=== PATIENT | male | born 1960 | race Caucasian/White ===

== ENCOUNTER → 2016-10-02 | Outpatient (CLI) | payer BC ==
[~2016-10-02] MED LIST: IOPAMIDOL (ISOVUE-370) 150 ML BTL IV ONE
== END ==
LOC: FIMAGING 13:56
PROVIDERS: ATTEND Psychiatry & Neurology Neurology
DX: R42 Dizziness and giddiness (principal); R91.1 Solitary pulmonary nodule; I65.02 Occlusion and stenosis of left vertebral artery; I87.8 Other specified disorders of veins
CPT/HCPCS: Q9967

== ENCOUNTER 2016-10-12 10:55 | Day surgery (SDC) | payer BC ==
[2016-10-12] MEDS ORDERED: MIDAZOLAM 2 MG/2 ML VIAL ONE ×2 (12:12→14:10)
[2016-10-12] MEDS ORDERED: fentaNYL 100 MCG/2 ML INJ ONE ×2 (12:12→14:10)
== END 2016-10-12 16:20 | disposition home or self-care (01) ==
LOC: FCATH 10:55
PROVIDERS: ATTEND Internal Medicine Cardiovascular Disease
PROC: B245ZZ4 Ultrasonography of Left Heart, Transesophageal (ICD-10-PCS; principal; 2016-10-12)
DX: R01.1 Cardiac murmur, unspecified (principal); I35.8 Other nonrheumatic aortic valve disorders; Z95.2 Presence of prosthetic heart valve; Z95.810 Presence of automatic (implantable) cardiac defibrillator
CPT/HCPCS: J2250; J3010

== ENCOUNTER 2016-11-08 10:29 | Inpatient (IN) | payer BC ==
[2016-11-08] MEDS ORDERED: FAMOTIDINE 20 MG TAB PO ONE (10:54)
[2016-11-08] MEDS ORDERED: DIAZEPAM 5 MG TAB PO ONE (10:54)
[2016-11-08] MEDS ORDERED: ASPIRIN EC 325 MG TAB PO ONE ×2 (10:54→11:21)
[2016-11-08] MEDS ORDERED: diphenhydrAMINE 25 MG CAP PO ONE ×2 (10:54→11:21)
[2016-11-08] MEDS ORDERED: NS 1,000 ML IV ONE (10:54)
--- NOTE | 2016-11-08 11:04 | CPEKG ---
Heart Rate: 82 RR Interval: 732 P-R Interval: 192 QRSD Interval: 106 QT Interval: 388 QTC Interval: 453 P [place]: 52 QRS [place]: -49 T Wave [place]: -88 EKG Severity - ABNORMAL ECG - EKG Impression: SINUS RHYTHM EKG Impression: LEFT ANTERIOR FASCICULAR BLOCK EKG Impression: LVH WITH SECONDARY REPOLARIZATION ABNORMALITY EKG Impression: ST/T WAVE CHANGES ARE MORE PRONOUNCED ON THIS ECG IN COMPARISON TO PRIOR Electronically Signed By: Jasper Peacock 08-Nov-2016 12:49:20
[2016-11-08] MEDS ORDERED: FAMOTIDINE 20 MG TAB ONE (11:21)
[2016-11-08] MEDS ORDERED: DIAZEPAM 5 MG TAB ONE (11:21)
[2016-11-08] MEDS ORDERED: LIDOCAINE 1% 30 ML SDV ONE (11:38)
[2016-11-08] MEDS ORDERED: MIDAZOLAM 2 MG/2 ML VIAL ONE ×2 (11:39→13:31)
[2016-11-08] MEDS ORDERED: HEPARIN 10,000 UNIT/10 ML MDV ONE (11:39)
[2016-11-08] MEDS ORDERED: fentaNYL 100 MCG/2 ML INJ ONE (11:39)
[2016-11-08] MEDS ORDERED: VERAPAMIL 5 MG/2 ML VIAL ONE (11:39)
[2016-11-08] MEDS ORDERED: IOPAMIDOL (ISOVUE 370) 100 ML BTL IV ONE ×2 (11:40→13:48)
[2016-11-08 11:45] LABS: % IMMATURE GRANULYOCYTES 0.4 % (0.0-1.1); ABSOLUTE IMMATURE GRANULOCYTES 0.02 10^3/uL (0.00-0.10); ADD DIFF? NO; ADD MORPH? NO; ADD SCAN? NO; ATYPICAL LYMPHOCYTE FLAG 20 (0-99); FRAGMENT RBC FLAG 0 (0-99); HEMATOCRIT 38.6 % (40.0-51.0); HEMOGLOBIN 13.9 g/dL (13.7-17.5); LEFT SHIFT FLG 0 (0-99); LIPEMIA HEMOLYSIS FLAG 90 (0-99); MEAN CELL HEMOGLOBIN 33.5 pg (27.9-34.1); MEAN PLATELET VOLUME 11.2 fL (8.7-11.7); PLATELET CLUMPS FLAG 10 (0-99); PLATELET COUNT 150 10^3/uL (150-400); RED BLOOD CELL COUNT 4.15 10^6/uL (4.40-6.38); RED CELL DISTRIBUTION WIDTH 11.8 % (11.5-15.2)
[2016-11-08 11:56] LABS: INR 1.16 (0.83-1.16); PROTIME(PATIENT) 14.8 SEC (12.0-15.0)
[2016-11-08 12:02] LABS: ANION GAP 14 mEq/L (8-16); CARBON DIOXIDE 19 mEq/l (22-31); CHLORIDE 102 mEq/L (97-110); POTASSIUM 4.5 mEq/L (3.5-5.2); SODIUM 135 mEq/L (134-144)
[2016-11-08 12:03] LABS: CALCIUM 9.2 mg/dL (8.5-10.4); CHOLESTEROL 140 mg/dL (140-220); CHOLESTEROL/HDL RATIO 6.09 RATIO (1.00-4.97); GLOMERULAR FILTRATION RATE > 60; GLUCOSE 206 mg/dL (70-100); HIGH DENSITY LIPOPROTEIN 23 mg/dL (40-65); LDL/HDL RATIO 1.78 RATIO (1.00-3.64); LOW DENSITY LIPOPROTEIN 41 mg/dL (80-100); MAGNESIUM 1.6 mg/dL (1.6-2.3); NON-HIGH DENSITY LIPOPROTEIN 117 mg/dL (90-129); TRIGLYCERIDE 382 mg/dL (40-150); VERY LOW DENSITY LIPOPROTEINS 76 mg/dL (8-25)
[2016-11-08] MEDS ORDERED: traMADol 50 MG TAB PO PRN (12:23)
[2016-11-08] MEDS ORDERED: CYCLOBENZAPRINE 10 MG TAB PO PRN (12:23)
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
[2016-11-08 13:43] LABS: HEMOGLOBIN A1C 9.7 % (4.0-6.0)
--- NOTE | 2016-11-08 14:41 | CPIP ---
[f rep st] INVASIVE CARDIAC PROCEDURE DATE OF PROCEDURE: 11/08/2016 PROCEDURE: 1. Coronary angiography. 2. Bypass graft angiography. INDICATION: Preoperative evaluation prior to surgical AVR. ACCESS: Patient was prepped and draped in sterile fashion. 1% lidocaine was used to anesthetize th e right inguinal region. A 6-[place]ong[place] introducer sheath was placed selectively into the right common femoral artery via modified Seldinger technique. CORONARY ANGIOGRAPHY: A 6-[place]ong[place] JL4 was advanced to the left main coronary artery and images ob[place]i [place]. The left main coronary artery bifurcated into an LAD and circumflex coronary arteries. The le ft main coronary artery appeared normal. The left anterior descending coronary artery gave rise to 1 prominent diagonal branch. The left anterior descending coronary artery had a segmental 70% to 80 % stenosis in the midvessel. The distal vessel was being filled by patent JACKMAN to LAD graft. The fi rst diagonal artery was a large vessel. The 1st diagonal artery was free of any significant disease. The first diagonal artery was being fed by a saphenous vein graft to diagonal artery. The circumf denise coronary artery was a moderate to large size vessel. The circumflex coronary artery gave rise t o 3 OM branches. Circumflex coronary artery was nondominant. Circumflex coronary artery appeared no rmal. A 6-[place]ong[place] JR4 was advanced to the right coronary artery and images obtained. The right reyna nary artery was dominant. The right coronary artery had mild luminal regularities throughout. Ther e was no stenosis greater than 15% to 20%. BYPASS GRAFT ANGIOGRAPHY: A 6-[place]ong[place] JR4 was used to engage the saphenous vein graft to diagonal ar [place]. saphenous vein graft to diagonal artery was widely patent with no evidence of stenosis. The 6- [place] JR4 was used to engage the JACKMAN to LAD graft. The JACKMAN to LAD graft was widely patent with n o evidence of stenosis. LEFT VENTRICULOGRAPHY: Left ventriculography was not performed given presence of severe aortic sten osis. COMPLICATIONS: None. CONCLUSIONS: 1. Single-vessel coronary artery disease. 2. Patent saphenous vein graft to diagonal artery. 3. Patent JACKMAN to LAD graft. /[id number]/MODL
[2016-11-08] MEDS: CARVEDILOL 25 MG TAB PO SCH (18:28)
[2016-11-08] MEDS ORDERED: CHLORHEXIDINE GLUC HIBICLENS 118 ML BTL TP SCH (20:00)
[2016-11-08] MEDS: HEPARIN 5,000 UNIT/0.5 ML SYR SC SCH ×2 (21:15→21:31)
[2016-11-08] MEDS: FLUoxetine 20 MG CAP PO SCH (21:22)
[2016-11-08] MEDS: MESALAMINE 400 MG CAP.DR PO SCH (21:29)
[2016-11-08] MEDS: MUPIROCIN 2% 22 GM OINT NS SCH (21:29)
[2016-11-08] MEDS: ZOLPIDEM TARTRATE 5 MG TAB PO SCH (23:00)
[2016-11-09 04:48] LABS: HEMATOCRIT 36.6 % (40.0-51.0); MEAN CELL HEMOGLOBIN 33.8 pg (27.9-34.1); MEAN CELL HEMOGLOBIN CONCENTR. 35.5 g/dL (32.4-36.7); MEAN CELL VOLUME 95.1 fL (81.5-99.8); RED BLOOD CELL COUNT 3.85 10^6/uL (4.40-6.38); RED CELL DISTRIBUTION WIDTH 11.8 % (11.5-15.2)
[2016-11-09 05:02] LABS: ANION GAP 10 mEq/L (8-16); CALCIUM 8.5 mg/dL (8.5-10.4); CARBON DIOXIDE 20 mEq/l (22-31); CHLORIDE 107 mEq/L (97-110); CREATININE 0.8 mg/dL (0.7-1.3); GLOMERULAR FILTRATION RATE > 60; GLUCOSE 111 mg/dL (70-100); POTASSIUM 4.1 mEq/L (3.5-5.2); SODIUM 137 mEq/L (134-144)
[2016-11-09] MEDS ORDERED: NS 1,000 ML IV ONE (06:00)
[2016-11-09] MEDS ORDERED: INSULIN REGULAR HUMAN 100 UNIT in NS 100 ML IV ONE (06:00)
[2016-11-09] MEDS ORDERED: CITRATE DEXTROSE SOLN 500 ML BAG MISC ONE (06:00)
[2016-11-09] MEDS ORDERED: AMINOCAPROIC ACID 5 GM/20 ML VIAL IV ONE (06:00)
[2016-11-09] MEDS ORDERED: DOBUTamine/DEXTROSE 250 ML IV ONE (06:00)
[2016-11-09] MEDS ORDERED: SODIUM BICARBONATE 20 MEQ, LIDOCAINE 1% 10 ML in NORMOSOL-R 1,000 ML MISC ONE (06:00)
[2016-11-09] MEDS ORDERED: PHENYLEPHRINE HCL 50 MG in NS 250 ML IV ONE (06:00)
[2016-11-09] MEDS ORDERED: NOREPINEPHRINE BITARTRATE 16 MG in NS 250 ML IV ONE (06:00)
[2016-11-09] MEDS ORDERED: MILRINONE/DEXTROSE 100 ML IV ONE (06:00)
[2016-11-09] MEDS ORDERED: ceFAZolin 2 GM/DEXTROSE 100 ML IV ONE (06:00)
[2016-11-09] MEDS ORDERED: MANNITOL 25% 12.5 GM/50 ML VIAL IV ONE (06:00)
[2016-11-09] MEDS ORDERED: CALCIUM CHLORIDE 1 GM/10 ML INJ ONE ×2 (06:49→08:25)
[2016-11-09] MEDS ORDERED: MILRINONE/DEXTROSE/100 ML BAG IV ONE (06:49)
[2016-11-09] MEDS ORDERED: AMINOCAPROIC ACID 5 GM/20 ML VIAL ONE (06:49)
[2016-11-09] MEDS ORDERED: ALBUMIN 5% 250 ML BOTTLE IV ONE (06:49)
[2016-11-09] MEDS ORDERED: POTASSIUM Cl (KCl) 20 MEQ/50 ML BAG IV ONE (06:49)
[2016-11-09] MEDS ORDERED: PROTAMINE SULFATE 50 MG/5 ML VIAL IVP ONE (06:49)
[2016-11-09] MEDS ORDERED: LIDOCAINE 2% 100 MG/5 ML SYR ONE ×2 (06:49→08:25)
[2016-11-09] MEDS ORDERED: NA BICARBONATE 50 MEQ/50 ML VIAL ONE ×2 (06:49→16:01)
[2016-11-09] MEDS ORDERED: ADENOSINE 6 MG/2 ML VIAL ONE (06:50)
[2016-11-09] MEDS ORDERED: CITRATE DEXTROSE SOLN 500 ML BAG ONE (06:50)
[2016-11-09] MEDS ORDERED: MAGNESIUM SULFATE 1 GM/2 ML VIAL ONE (06:50)
[2016-11-09] MEDS ORDERED: niCARdipine/NACL/200 ML BAG IV ONE (06:50)
[2016-11-09] MEDS ORDERED: DOPamine/DEXTROSE/250 ML BAG IV ONE (06:50)
[2016-11-09] MEDS ORDERED: AMIODARONE HCL 150 MG/3 ML VIAL ONE (06:50)
[2016-11-09] MEDS ORDERED: methylPREDNISolone SOD SUCC 1 GM/8 ML VIAL ONE (06:50)
[2016-11-09] MEDS ORDERED: ceFAZolin 1 GM VIAL ONE (06:51)
[2016-11-09] MEDS ORDERED: HEPARIN 10,000 UNIT/10 ML MDV ONE (06:51)
[2016-11-09] MEDS ORDERED: LIDOCAINE 1% 5 ML SDV ONE (06:58)
[2016-11-09] MEDS ORDERED: LR 1,000 ML IV ONE (08:03)
[2016-11-09] MEDS ORDERED: MIDAZOLAM 2 MG/2 ML VIAL ONE ×4 (08:07→08:22)
[2016-11-09] MEDS ORDERED: PROPOFOL/EMULSION 500 MG/50 ML BOTTLE IV ONE ×2 (08:23→10:21)
[2016-11-09] MEDS ORDERED: fentaNYL 250 MCG/5 ML INJ ONE (08:23)
[2016-11-09] MEDS ORDERED: REMIFENTANIL HCL 1 MG VIAL ONE ×2 (08:23→10:21)
[2016-11-09] MEDS ORDERED: ROCURONIUM 50 MG/5 ML VIAL ONE ×3 (08:23→08:24)
[2016-11-09] MEDS ORDERED: ONDANSETRON 4 MG/2 ML VIAL ONE (08:24)
[2016-11-09] MEDS ORDERED: epHEDrine SULFATE 10 MG/ML SYR ONE (08:24)
[2016-11-09] MEDS ORDERED: DEXAMETHASONE 4 MG/ML VIAL ONE ×2 (08:24)
[2016-11-09] MEDS ORDERED: PHENYLEPHRINE HCL 100 MCG/ML SYR ONE (08:25)
[2016-11-09] MEDS ORDERED: LIDOCAINE HCL 160 MG/4 ML LTA KIT TP ONE (08:25)
[2016-11-09] MEDS ORDERED: morphINE *ANESTHESIA ONLY* 10 MG/ML VIAL ONE (12:17)
[2016-11-09] MEDS ORDERED: ALBUMIN 5% 250 ML IV PRN (12:35)
[2016-11-09] MEDS ORDERED: fentaNYL 100 MCG/2 ML INJ IVP PRN (12:35)
[2016-11-09] MEDS ORDERED: POTASSIUM Cl (KCl) 50 ML IV PRN (12:35)
[2016-11-09] MEDS ORDERED: ACETAMINOPHEN 650 MG SUPP PR PRN (12:35)
[2016-11-09] MEDS ORDERED: ONDANSETRON DISINTEGRATING 4 MG TAB PO PRN (12:35)
[2016-11-09] MEDS ORDERED: CEPACOL LOZENGE PO PRN (12:35)
[2016-11-09] MEDS ORDERED: METOCLOPRAMIDE 10 MG/2 ML VIAL IVP PRN (12:35)
[2016-11-09] MEDS ORDERED: SODIUM CL NASAL 45 ML BTL EACHNARE PRN (12:35)
[2016-11-09] MEDS ORDERED: POLYETHYLENE GLYCOL 3350 17 GM PKT PO PRN (12:35)
[2016-11-09] MEDS ORDERED: MAGNESIUM SULF 2 GM/WATER 50 ML IV ONE (12:35)
[2016-11-09] MEDS ORDERED: D50W 25 GM/50 ML SYR IVP PRN (12:35)
[2016-11-09] MEDS ORDERED: MEPERIDINE 25 MG/ML SYR IVP PRN (12:35)
[2016-11-09] MEDS ORDERED: PANTOPRAZOLE SODIUM 40 MG in NS 100 ML IV ONE (12:35)
[2016-11-09] MEDS ORDERED: MAGNESIUM HYDROXIDE 30 ML UDCUP PO PRN (12:35)
[2016-11-09] MEDS ORDERED: LACTULOSE 20 GM/30 ML UDCUP PO PRN (12:35)
[2016-11-09] MEDS ORDERED: BISACODYL 10 MG SUPP PR PRN (12:35)
[2016-11-09] MEDS ORDERED: ACETAMINOPHEN 325 MG TAB PO PRN (12:35)
[2016-11-09] MEDS ORDERED: NS 1,000 ML IV SCH (12:45)
[2016-11-09] MEDS ORDERED: MAGNESIUM SULF 2 GM/WATER 50 ML BAG IV ONE (12:53)
[2016-11-09] MEDS ORDERED: INSULIN REGULAR HUMAN 100 UNIT in NS 100 ML IV SCH (13:00)
[2016-11-09] MEDS ORDERED: SKIN ADHESIVE (DERMABOND) 1 EACH TP ONE ×2 (13:00→13:16)
[2016-11-09 14:02] LABS: CALCULATED OXYGEN SATURATION 98 % (92-95)
--- NOTE | 2016-11-09 14:09 | POSTOPPROG ---
Post Op Note Date of Operation: 11/09/16 Surgeon: Ernesto Abdi Lift Slab Operator: Lore Joseph Anesthesiologist: Mitch Anesthesia: GET(General Endotracheal) Pre-op Diagnosis: prosthetic aortic valve stenosis Procedure: reoperation AVR Inf/Abcess present in the surg proc area at time of surgery?: No EBL: 100-500 Drains: Other (3 blakes)
[2016-11-09 14:27] LABS: POTASSIUM 5.7 mEq/L (3.5-5.2)
[2016-11-09] MEDS: ceFAZolin 2 GM/DEXTROSE 100 ML IV SCH ×2 (14:35→21:14)
--- NOTE | 2016-11-09 14:45 | CPEKG ---
Heart Rate: 76 RR Interval: 789 P-R Interval: 208 QRSD Interval: 112 QT Interval: 416 QTC Interval: 468 P [place]: 63 QRS [place]: -53 T Wave [place]: 261 EKG Severity - ABNORMAL ECG - EKG Impression: SINUS RHYTHM EKG Impression: LEFT ANTERIOR FASCICULAR BLOCK EKG Impression: LVH CONTINUES TO BE NOTED Electronically Signed By: Jasper Peacock 09-Nov-2016 16:17:48
[2016-11-09] MEDS: niCARdipine/NACL 200 ML IV SCH (14:52)
--- NOTE | 2016-11-09 14:55 | GOP ---
[f rep st] OPERATIVE REPORT DATE OF OPERATION: 11/09/2016 SURGEON: Ernesto Abdi DO DIE REPAIRER TRIMMER DIES: Raisa Joseph PA-C. ANESTHESIOLOGIST: Maurice Meyer MD. PREOPERATIVE DIAGNOSIS: Prosthetic valve stenosis, status post previous aortic valve replacement wi th a porcine valve. POSTOPERATIVE DIAGNOSIS: Minimal evidence of prosthetic failure, leaflets appeared pristine with mi nimal thrombus along the right coronary leaflet. PROCEDURE PERFORMED: Reoperation and aortic valve replacement with a #25 Magna bioprosthesis. FINDINGS: Patient was found to have early valve degeneration 1 year post procedure with aortic valv e replacement and mitral repair, CABG, ligation of the appendage and aortoplasty. He was consented and referred for repeat surgery, catheterization preoperative bilirubin revealed patent grafts and g ood LV function. He was brought to the operating room, intubated, monitoring lines were placed by A nesthesia. He was prepped and draped in sterile classical manner. Repeat median sternotomy was per formed with an oscillating saw. Marsupialization of the ascending aorta and right side of the heart was performed for limited exposure. There was inadvertent injury to the main pulmonary artery whic h was primarily repaired and of no consequence. He was heparinized, cannulated in the standard [facility] ion. Cardiopulmonary bypass was begun. A cardioplegic arrest was obtained with antegrade cardiople ofelia, retrograde cardioplegia, topical hypothermia and systemic cooling. Aortotomy was performed in standard fashion. The valve was inspected. There was a 25 mm mosaic porcine valve which essentiall y appeared without any valve degeneration or thickening. There was a small amount of pannus along t he valve annular commissure but not likely enough to cause outflow obstruction. Because the valve d id not appear to have early failure, the patient and I discussed mechanical versus tissue valve. We were prepared to replace the mechanical, although patient did not want to be on Coumadin life long. I advised him that if the valve in fact did not show heavy pannus or degenerative changes that we could consider using a bovine valve or a mechanical valve. Given the fact that the valve had no sig nificant pannus identified, I elected to place a bovine valve for his quality of life and [facility]. The previous valve was excised. The anulus was debrided. All pledgets and foreign bodies we re removed from the anulus. He was sized for a 25 Magna valve. This was sutured in place with inte rrupted 2-0 Tycron pledgeted mattress sutures utilizing core knots. Aortotomy was closed in a 2-lay er fashion. LV chamber had been copiously irrigated. It should be noted that the previous mammary had a bulldog applied before cardioplegia was administered. The cross-clamp was removed with suctio n on the ascending aortic vent. Spontaneous cardiac activity was noted to resume. Patient was easi ly weaned from bypass. Heparin was reversed with protamine. The cannula was removed and oversewn. Transesophageal echo revealed good valvular function without insufficiency with a peak gradient of 15 and a mean gradient of 7 which would be consistent with a 25 Magna valve. After controlling all bleeding, attempts were made to close the thymus and pericardium as much as possible predominantly o pablo the upper portion of the aorta and proximal pulmonary artery. The sternum was closed in standar d fashion with 2 ventricular pacing wires, although he had indwelling defibrillator pacemaker. Ster num was closed in a standard fashion. Patient was returned to ICU in stable condition. DESCRIPTION OF PROCEDURE: /[id number]/MODL
[2016-11-09] MEDS ORDERED: FUROSEMIDE 20 MG/2 ML VIAL IV ONE (15:30)
[2016-11-09] MEDS: CARVEDILOL 25 MG TAB PO SCH (15:36)
[2016-11-09] MEDS: MESALAMINE 400 MG CAP.DR PO SCH (15:37)
[2016-11-09] MEDS ORDERED: NALOXONE HCL 0.4 MG/ML INJ ONE (16:01)
[2016-11-09] MEDS ORDERED: NA BICARBONATE 50 MEQ/50 ML VIAL IV ONE (16:30)
[2016-11-09] MEDS ORDERED: NALOXONE HCL 0.4 MG/ML INJ IVP ONE (16:30)
[2016-11-09] MEDS ORDERED: KETOROLAC 30 MG/1 ML SDV IVP ONE (16:30)
[2016-11-09 19:16] LABS: BASE EXCESS -3.5 mEq/L (-2.5-2.5); BICARBONATE 22 mEq/L (22-26); MEASURED OXYGEN SATURATION 97 % (92-95); PCO2 42 mmHg (34-38); PO2 98 mmHg (65-75); TCO2 23 mEq/L (23-27)
[2016-11-09] MEDS: ONDANSETRON 4 MG/2 ML VIAL IVP PRN (19:32)
[2016-11-09] MEDS: HEPARIN 5,000 UNIT/0.5 ML SYR SC SCH (19:39)
[2016-11-09] MEDS: MUPIROCIN 2% 22 GM OINT NS SCH ×2 (19:39→21:13)
[2016-11-09 19:54] LABS: CALCULATED OXYGEN SATURATION 91 % (92-95)
[2016-11-09 19:54] LABS: CALCULATED OXYGEN SATURATION 93 % (92-95)
[2016-11-09] MEDS: HYDROCODONE/APAP 5/325 TAB PO PRN ×2 (19:56→23:50)
[2016-11-09] MEDS: SENNOSIDES/DOCUSATE SODIUM TAB PO SCH (21:13)
[2016-11-09] MEDS: FLUoxetine 20 MG CAP PO SCH (21:14)
[2016-11-09] MEDS ORDERED: AMIODARONE A.FIB-LOAD DOSE(ORDER 1/3) IV ONE (23:30)
[2016-11-09] MEDS ORDERED: AMIODARONE A.FIB-6HR INFSN (ORDER 2/3) IV ONE (23:30)
[2016-11-09] MEDS ORDERED: AMIODARONE A.FIB-18HR INFSN (ORDER 3/3) IV ONE (23:30)
[2016-11-10] MEDS: niCARdipine/NACL 200 ML IV SCH ×2 (01:00→08:50)
[2016-11-10] MEDS: ceFAZolin 2 GM/DEXTROSE 100 ML IV SCH ×3 (05:06→20:13)
[2016-11-10] MEDS: HYDROCODONE/APAP 5/325 TAB PO PRN ×4 (05:06→20:10)
[2016-11-10 05:10] LABS: % IMMATURE GRANULYOCYTES 0.6 % (0.0-1.1); ABSOLUTE IMMATURE GRANULOCYTES 0.07 10^3/uL (0.00-0.10); ADD DIFF? NO; ADD MORPH? NO; ADD SCAN? NO; ATYPICAL LYMPHOCYTE FLAG 0 (0-99); FRAGMENT RBC FLAG 0 (0-99); HEMATOCRIT 25.8 % (40.0-51.0); HEMOGLOBIN 9.1 g/dL (13.7-17.5); LEFT SHIFT FLG 10 (0-99); LIPEMIA HEMOLYSIS FLAG 90 (0-99); MEAN CELL HEMOGLOBIN 33.8 pg (27.9-34.1); MEAN CELL HEMOGLOBIN CONCENTR. 35.3 g/dL (32.4-36.7); MEAN CELL VOLUME 95.9 fL (81.5-99.8); PLATELET CLUMPS FLAG 0 (0-99); PLATELET COUNT 94 10^3/uL (150-400); RED BLOOD CELL COUNT 2.69 10^6/uL (4.40-6.38); RED CELL DISTRIBUTION WIDTH 12.2 % (11.5-15.2)
[2016-11-10] MEDS: HEPARIN 5,000 UNIT/0.5 ML SYR SC SCH ×4 (05:15→20:35)
[2016-11-10 05:29] LABS: ANION GAP 8 mEq/L (8-16); CALCIUM 7.7 mg/dL (8.5-10.4); CARBON DIOXIDE 21 mEq/l (22-31); CHLORIDE 109 mEq/L (97-110); CREATININE 0.7 mg/dL (0.7-1.3); GLOMERULAR FILTRATION RATE > 60; GLUCOSE 143 mg/dL (70-100); POTASSIUM 4.8 mEq/L (3.5-5.2); SODIUM 138 mEq/L (134-144)
[2016-11-10] MEDS ORDERED: AMIODARONE HCL 200 ML IV SCH (05:30)
--- NOTE | 2016-11-10 08:16 | SOAPPROG ---
SOAP Progress Note Assessment/Plan: Assessment: POD#1 redo AVR #25 Magna bovine pericardial bioprosthesis, preservation JACKMAN-LAD and SV-D1 grafts Sx severe bioprosthetic - Degenerated porcine valve replaced with bovine valve. Procedure well tolerated. Extubated in the OR. Antithrombotic prophylaxis with ASA alone, pending stability of rhythm. Chronic dCHF - No sig postop volume overload. No need for inotropic support. PVC freq controlled with Amio. Reintroduction of heart failure regimen in staggered fashion as tolerate. Presence of dual chamber ICD - Hx freq PVCs, short runs NSVT, rare pacing. Postop ventricular ectopy suppressed with Amio. HTN - Preop control with coreg, lisinopril and lasix. Postop control with low dose cardene gtt. Wean in progress. Plan switch coreg to metoprolol as LVEF normal. Acute expected blood loss anemia with mild coagulopathy - Stable. CTOP gradually less. No blood transfusions required. Care with VTE prophylaxis while plt count < 100. New diabetes - Suspected by preop A1c of 9.7%. Postop hyperglycemia managed with insulin gtt. Transition to basal/SSI as per ICU. Low threshold to obtain IM consult if correctional needs elevated. CAD - Patent grafts. No apparent periop ischemia. Secondary prevention with ASA , BB and statin when eating well. Plan: Routine POD#1 orders re wires, orals and mobility. Keep CTs to pleurovac, on suction at rest. Begin active diuresis. Transition cardene to oral BB +/- ACEI. D/C jacinta once off cardene. Transition IV amio to oral tonight. Transition insulin gtt to SSI. PPM interrogation/ICD reactivation per medtronic rep. Tx to PCU later today. 11/10/16 08:13 Subjective: Feels better than expected. Thrilled that mechanical valve avoided. Tolerating sips and chips. OOB without dizziness or lightheadedness. Objective: Vital Signs Temp Pulse Resp BP Pulse Ox 37.1 C 81 20 142/64 H 94 11/10/16 04:00 11/10/16 07:00 11/10/16 07:00 11/10/16 07:00 11/10/16 07:00 Laboratory Results 11/10/16 05:05 11/10/16 05:05 11/09/16 11/10/1617 05:59 05:59 05:59 Intake Total 400 3900.1 Output Total 450 3385 Balance -50 515.1 PT 14.8 SEC (12.0-15.0) 11/08/16 11:28 INR 1.16 (0.83-1.16) 11/08/16 11:28 Cardene at 5 mg/h for SBP > 130. Amio per protocol for freq PVCs with occ 3-4 beat runs of VT. Rare PVCs since load completed. Insulin at 4u/h. CTOP initially elev, now dissipating. +AL w valsalva. CXR-> Tubes in good position. Mild pulm vasc congestion and bibasilar atelectasis. Small rt apical PTX. Modest suppl O2 req. Relatively balanced I/Os. Stable renal fx. Physical Exam - Physical Exam General Appearance: alert, no apparent distress Respiratory: crackles (tube noise), other (blakes x 3 y-d to pleurovac, thin serosang drainage, +tidal, +AL w valsalva) Cardiac/Chest: regular rate, rhythm, other (Sternum grossly stable. Sternotomy CDI. V wire intact. Zoll pads in place.) Abdomen: normal bowel sounds, non-tender, soft Skin: normal color Extremities: swelling (1+ gen) ICD10 Worksheet Patient Problems: Problems Problem Status Onset Acute blood loss anemia Acute Prosthetic aortic valve stenosis Acute S/P aortic valve replacement with bioprosthetic valve Acute ~11/09/16 CAD in [place] artery Chronic Congestive heart failure (CHF) Chronic ICD (implantable cardioverter-defibrillator), dual, in situ Chronic Nonsustained ventricular tachycardia Chronic Dyslipidemia (high LDL; low HDL) Chronic HTN (hypertension) Chronic
[2016-11-10] MEDS ORDERED: FUROSEMIDE 40 MG/4 ML VIAL IVP ONE (08:35)
[2016-11-10] MEDS: ASPIRIN 81 MG CHEWABLE TAB PO SCH (08:51)
[2016-11-10] MEDS: PANTOPRAZOLE SODIUM 40 MG TAB PO SCH (08:51)
[2016-11-10] MEDS: MEMANTINE HCL 5 MG TAB PO SCH (08:51)
[2016-11-10] MEDS: SENNOSIDES/DOCUSATE SODIUM TAB PO SCH (08:52)
[2016-11-10] MEDS ORDERED: METOPROLOL TARTRATE 25 MG TAB PO ONE (09:00)
[2016-11-10] MEDS: MUPIROCIN 2% 22 GM OINT NS SCH ×2 (09:01→22:21)
[2016-11-10] MEDS: MESALAMINE 400 MG CAP.DR PO SCH ×2 (09:16→19:44)
[2016-11-10] MEDS ORDERED: INSULIN GLARGINE 100 UNITS/ML SYRINGE SC ONE (10:30)
[2016-11-10] MEDS: ONDANSETRON 4 MG/2 ML VIAL IVP PRN (10:48)
[2016-11-10] MEDS: INSULIN LISPRO 100 UNIT/ML SC SCH ×2 (12:18→18:17)
[2016-11-10] MEDS ORDERED: LISINOPRIL 5 MG TAB PO SCH (12:30)
[2016-11-10 13:20] LABS: POTASSIUM 4.9 mEq/L (3.5-5.2)
[2016-11-10] MEDS: FUROSEMIDE 40 MG TAB PO SCH (14:22)
[2016-11-10] MEDS ORDERED: POTASSIUM CL 10 MEQ TAB PO ONE (15:00)
[2016-11-10] MEDS: METOPROLOL TARTRATE 25 MG TAB PO SCH (19:44)
[2016-11-10] MEDS: FLUoxetine 20 MG CAP PO SCH (19:44)
[2016-11-10] MEDS: AMIODARONE HCL 200 MG TAB PO SCH (19:45)
[2016-11-10] MEDS: ZOLPIDEM TARTRATE 5 MG TAB PO SCH ×2 (20:11→22:20)
[2016-11-10] MEDS ORDERED: CARVEDILOL 6.25 MG TAB PO SCH (21:00)
[2016-11-10] MEDS ORDERED: SENNOSIDES/DOCUSATE SODIUM TAB PO PRN (21:00)
[2016-11-11] MEDS: HYDROCODONE/APAP 5/325 TAB PO PRN ×3 (00:33→09:02)
[2016-11-11 04:40] LABS: % IMMATURE GRANULYOCYTES 0.8 % (0.0-1.1); ABSOLUTE IMMATURE GRANULOCYTES 0.11 10^3/uL (0.00-0.10); ABSOLUTE NRBC COUNT 0.04 10^3/uL (0-0.01); ADD DIFF? NO; ADD MORPH? NO; ADD SCAN? NO; ATYPICAL LYMPHOCYTE FLAG 0 (0-99); FRAGMENT RBC FLAG 0 (0-99); HEMATOCRIT 24.1 % (40.0-51.0); HEMOGLOBIN 8.4 g/dL (13.7-17.5); LEFT SHIFT FLG 10 (0-99); LIPEMIA HEMOLYSIS FLAG 90 (0-99); MEAN CELL HEMOGLOBIN 33.5 pg (27.9-34.1); MEAN CELL HEMOGLOBIN CONCENTR. 34.9 g/dL (32.4-36.7); MEAN PLATELET VOLUME 11.1 fL (8.7-11.7); NRBC-AUTO% 0.3 % (0.0-0.2); PLATELET CLUMPS FLAG 10 (0-99); PLATELET COUNT 114 10^3/uL (150-400); RED BLOOD CELL COUNT 2.51 10^6/uL (4.40-6.38); RED CELL DISTRIBUTION WIDTH 12.4 % (11.5-15.2)
[2016-11-11 04:57] LABS: ANION GAP 10 mEq/L (8-16); CALCIUM 7.5 mg/dL (8.5-10.4); CARBON DIOXIDE 23 mEq/l (22-31); CHLORIDE 100 mEq/L (97-110); CREATININE 0.7 mg/dL (0.7-1.3); GLOMERULAR FILTRATION RATE > 60; GLUCOSE 171 mg/dL (70-100); POTASSIUM 4.6 mEq/L (3.5-5.2); SODIUM 133 mEq/L (134-144)
[2016-11-11] MEDS: HEPARIN 5,000 UNIT/0.5 ML SYR SC SCH ×3 (06:44→20:55)
[2016-11-11] MEDS ORDERED: INSULIN GLARGINE 100 UNITS/ML SYRINGE SC ONE (08:00)
--- NOTE | 2016-11-11 08:44 | SOAPPROG ---
SOAP Progress Note Assessment/Plan: Assessment: POD#2 redo AVR #25 Magna bovine pericardial bioprosthesis, preservation JACKMAN-LAD and SV-D1 grafts Sx severe bioprosthetic - Degenerated porcine valve replaced with bovine valve. Procedure well tolerated. Extubated in the OR. Antithrombotic prophylaxis with ASA alone, pending stability of rhythm. Chronic dCHF - No sig postop volume overload. No need for inotropic support. PVC freq controlled with Amio. Reintroduction of heart failure regimen in staggered fashion as tolerated. Presence of dual chamber ICD - Hx freq PVCs, short runs NSVT, rare pacing. Postop device fx normal by interrogation. Ventricular ectopy suppressed with Amio. HTN - Preop control with coreg, lisinopril and lasix. Postop control with low dose cardene gtt. Wean in progress. Coreg switched to metoprolol as LVEF normal. Acute expected blood loss anemia with mild coagulopathy - Stable. CTOP gradually less. No blood transfusions required. Care with VTE prophylaxis while plt count < 100. New diabetes - Suspected by preop A1c of 9.7%. Postop hyperglycemia managed with insulin gtt. Transition to basal/SSI as per ICU. Low threshold to obtain IM consult if correctional needs elevated. CAD - Patent grafts. No apparent periop ischemia. Secondary prevention with ASA , BB and statin when eating well. Plan: Vwire removed. Blakes converted to bulb suction. Cont Lasix 40mg BID/KCL 20mEq daily. Cont metoprolol 25mg BID. Cont amio 200 mg BID. Consider lisinopril 5 mg daily if hypertensive. Cont glargine/SSI. IM consult for further management. Inc mobility and pulm toilet. 11/11/16 08:37 Subjective: Feels well. Recovering appetite. Tolerating light activity without dizziness. Satisfactory analgesia. Objective: Vital Signs Temp Pulse Resp BP Pulse Ox 36.2 C 78 20 109/62 98 11/11/16 07:36 11/11/16 07:36 11/11/16 07:36 11/11/16 07:36 11/11/16 07:36 Laboratory Results 11/11/16 04:30 11/11/16 04:30 11/10/16 11/11/16 11/12/16 05:59 05:59 05:59 Intake Total 3900.1 2070 Output Total 3385 1672 Balance 515.1 398 PT 14.8 SEC (12.0-15.0) 11/08/16 11:28 INR 1.16 (0.83-1.16) 11/08/16 11:28 Holding SR with freq unifocal PVCs. BP well controlled. Minimal suppl O2 req. Air leak resolved. Chest tube drainage thin and dissipating. Balanced I/Os. Labs ok. 26u correctional insulin. Physical Exam - Physical Exam General Appearance: alert, no apparent distress Respiratory: lungs clear (grossly), other (blakes x 3 y-d to pleurovac, serosang drainage, no AL w cough; tubes converted to bulb suction without incident) Cardiac/Chest: regular rate, rhythm, other (Sternum grossly stable. Sternotomy CDI. Vwire d/cd without difficulty) Abdomen: non-tender, soft Skin: warm/dry Extremities: swelling (1+ gen) ICD10 Worksheet Patient Problems: Problems Problem Status Onset Acute blood loss anemia Acute Prosthetic aortic valve stenosis Acute S/P aortic valve replacement with bioprosthetic valve Acute ~11/09/16 CAD in [place] artery Chronic Congestive heart failure (CHF) Chronic ICD (implantable cardioverter-defibrillator), dual, in situ Chronic Nonsustained ventricular tachycardia Chronic Dyslipidemia (high LDL; low HDL) Chronic HTN (hypertension) Chronic
[2016-11-11] MEDS: INSULIN LISPRO 100 UNIT/ML SC SCH ×3 (08:54→19:48)
[2016-11-11] MEDS: ASPIRIN 81 MG CHEWABLE TAB PO SCH (08:54)
[2016-11-11] MEDS: ATORVASTATIN CALCIUM 20 MG TAB PO SCH (08:54)
[2016-11-11] MEDS: POTASSIUM CL 20 MEQ TAB PO SCH (08:54)
[2016-11-11] MEDS: MEMANTINE HCL 5 MG TAB PO SCH (08:54)
[2016-11-11] MEDS: FUROSEMIDE 40 MG TAB PO SCH ×2 (08:54→14:04)
[2016-11-11] MEDS: AMIODARONE HCL 200 MG TAB PO SCH ×2 (08:54→20:52)
[2016-11-11] MEDS: PANTOPRAZOLE SODIUM 40 MG TAB PO SCH (10:16)
[2016-11-11] MEDS: MUPIROCIN 2% 22 GM OINT NS SCH (10:16)
[2016-11-11] MEDS: METOPROLOL TARTRATE 25 MG TAB PO SCH ×2 (10:16→20:52)
[2016-11-11] MEDS: MESALAMINE 400 MG CAP.DR PO SCH ×2 (10:16→20:52)
[2016-11-11 10:17] LABS: POTASSIUM 4.6 mEq/L (3.5-5.2)
--- NOTE | 2016-11-11 10:24 | PDCONSULT ---
Body Design Checker Note: date of service: 11/11/2016 Requesting physician: Dr. Ernesto Abdi Reason for consultation: Diabetes management History of presenting illness: 56 y/o male with history of coronary artery disease, CHF, hypertension, aortic valve stenosis post op day 2 after redo aortic valve replacement. Postoperatively he was found to have elevated blood sugars. Denies history of diabetes mellitus. While in the hospital as blood sugars have ranged from 111- 173. Hemoglobin A1c was done and was elevated at 9.7. Mr. Bryant does not recall when he was last screened for diabetes. He has had polydipsia and polyuria for some time. He denies weight loss. He does report some tingling in his feet. He was given 15 units of Glargine this morning and has been started on the high dose insulin correctional insulin. Prior to that, he was on a insulin drip to maintain tight glycemic control. Past medical history: CAD, CHF, HTN, hyperlipidemia, diverticulitis Past surgical history: coronary bypass surgery, colectomy (partial, with revisions, for diverticulitis) , pacemaker/AICD (dual chamber Med[employer]onic Evera 08/29/15; pacing mode DDDR; Nl device fx, no atrial arrhythmia, NSVT, prophylactic ligation of the left atrial appendage; procedure complicated by coagulopathy necessitating take back for exploration and washout. Home medications: reviewed refer to [employer] for details Allergies: NKDA Social history: He lives in [place], [place] and is a former smoker. He denies any alcohol or illicit drug use Family history: reviewed and noncontributory Review of systems: A comprehensive 10 point review systems was done that was negative except for what was mentioned in the HPI and below. PHYSICAL EXAM: 11/11/16 11:08 Heart Rate 78 Respiratory 23 H Rate O2 Sat (%) 93 Temperature (C) 36.6 C Blood Pressure 113/78 O2 (L/minute) 2 GENERAL: Well-appearing, no acute distress, nontoxic appearing HEENT: Head is normocephalic atraumatic, eyes are PERRLA, ears are normal appearing, mucous membranes are moist without lesions CARDIOVASCULAR: Regular rate and rhythm; normal S1 and S2 with rub, there is no JVD; there is no lower extremity edema CHEST: Sternal wound is closed and without signs of infections PULMONARY: Lungs are clear to auscultation bilaterally without wheezes, rales, rhonchi; respiratory effort is nonlabored without signs of acute respiratory distress. Diminished breath sounds in the bilateral bases. ABDOMINAL/GASTROINTESTINAL: Soft, nontender, nondistended with normoactive bowel sounds. There is no guarding or rebound tenderness. GENITOURINARY: No Madrigal in place EXTREMITIES: No clubbing, cyanosis, or edema NEUROLOGIC: Cranial nerves 2-12 are grossly intact; face symmetric; moves all other extremities; speech is fluent; alert and oriented to person, place, and time SKIN: There are no rashes; I did not examine the patient for decubiti Diagnostics: Laboratory Tests 11/11/16 11/11/16 04:30 04:30 WBC 14.56 H Hgb 8.4 L Hct 24.1 L Plt Count 114 L Sodium 133 L Potassium 4.6 Chloride 100 Carbon Dioxide 23 BUN 15 Creatinine 0.7 Glucose 171 H Calcium 7.5 L Laboratory Tests 11/08/16 11:28 Hemoglobin A1c 9.7 H D Imaging: I visualized and personally interpreted the cxr done 11/10 Assessment/plan: This is a 56 year old male POD #2 redo aortic valve replacement who I have been asked to evaluate for: #Newly diagnosed uncontrolled Type 2 Diabetes Mellitus with A1c of 9.7 - Recommend goal blood sugar <180 - Continue Glargine 15 units SQ daily - Will decrease correctional insulin to the standard dosing regime for now - ADA diet - Continue with blood sugar monitoring per protocol - Consider starting metformin on discharge - Will need close outpatient followup for his DM with annual eye exam/ podiatric visits etc... #suspected Diabetic peripheral neuropathy -consider Neurontin or a TCA if symptoms worsen #Chronic Diarrhea #Mild hyponatremia monitor #Expected blood loss anemia from surgery Thank you for allowing me to participate in the care of Mr. Bryant. The hospital medicine team will continue to follow along with you through the hospital stay.
[2016-11-11] MEDS: OXYCODONE/APAP 5/325 TAB PO PRN ×3 (14:03→20:59)
[2016-11-11] MEDS ORDERED: WARFARIN SODIUM 5 MG TAB PO SCH (16:00)
[2016-11-11] MEDS: ZOLPIDEM TARTRATE 5 MG TAB PO SCH (20:52)
[2016-11-11] MEDS: FLUoxetine 20 MG CAP PO SCH (20:52)
[2016-11-12] MEDS: OXYCODONE/APAP 5/325 TAB PO PRN ×2 (01:06→05:56)
[2016-11-12 04:25] LABS: HEMATOCRIT 21.9 % (40.0-51.0); HEMOGLOBIN 7.5 g/dL (13.7-17.5)
[2016-11-12 04:58] LABS: POTASSIUM 3.8 mEq/L (3.5-5.2)
[2016-11-12 05:06] LABS: INR 1.35 (0.83-1.16); PROTIME(PATIENT) 16.7 SEC (12.0-15.0)
[2016-11-12] MEDS: HEPARIN 5,000 UNIT/0.5 ML SYR SC SCH (05:57)
--- NOTE | 2016-11-12 08:20 | SOAPPROG ---
SOMELISA Progress Note Assessment/Plan: Assessment: POD#3 redo AVR #25 Magna bovine pericardial bioprosthesis, preservation JACKMAN-LAD and SV-D1 grafts Sx severe bioprosthetic - Degenerated porcine valve replaced with bovine valve. Procedure well tolerated. Extubated in the OR. Antithrombotic prophylaxis with ASA/Coumadin. Chronic dCHF - No sig postop volume overload. No need for inotropic support. PVC freq controlled with Amio. Reintroduction of heart failure regimen in staggered fashion as tolerated. Presence of dual chamber ICD - Hx freq PVCs, short runs NSVT, rare pacing. Postop device fx normal by interrogation. Ventricular ectopy suppressed with Amio. HTN - Preop control with coreg, lisinopril and lasix. BB (metoprolol) started as LVEF normal. Acute expected blood loss anemia - HCT lower today at 21 from 24. No signs of active bleeding (CTs with serosanguineous output/CXR without effusions) or symptoms of anemia. Consider PRBC transfusion as per Dr. Abdi. New diabetes - Suspected by preop A1c of 9.7%. Postop hyperglycemia managed with insulin gtt. Transitioned to Lantus as per IM. Will need education for insulin administration and glucose checks. CAD - Patent grafts. No apparent periop ischemia. Secondary prevention with ASA , BB and statin when eating well. Subjective: Denies light-headedness, weakness, pre-syncope. Pain well controlled. Denies SOB. Objective: Vital Signs Temp Pulse Resp BP Pulse Ox 36.6 C 77 18 121/72 H 99 11/12/16 08:09 11/12/16 08:09 11/12/16 08:09 11/12/16 08:09 11/12/16 08:14 Laboratory Results 11/12/16 03:45 11/12/16 03:45 11/11/16 11/12/16 11/13/16 05:59 05:59 05:59 Intake Total 2070 1060 Output Total 1672 3897 Balance 398 -2837 PT 16.7 SEC (12.0-15.0) H 11/12/16 03:45 INR 1.35 (0.83-1.16) H 11/12/16 03:45 Physical Exam - Physical Exam General Appearance: WD/WN, alert, no apparent distress EENT: normal ENT inspection Neck: normal inspection Respiratory: No respiratory distress Cardiac/Chest: regular rate, rhythm, other (CTx3 intact) Abdomen: non-tender, soft, No distended Skin: normal color, warm/dry Extremities: No pedal edema Neuro/Psych: no motor/sensory deficits, alert, normal mood/affect, oriented x 3 ICD10 Worksheet Patient Problems: Problems Problem Status Onset Acute blood loss anemia Acute Prosthetic aortic valve stenosis Acute S/P aortic valve replacement with bioprosthetic valve Acute ~11/09/16 CAD in [place] artery Chronic Congestive heart failure (CHF) Chronic ICD (implantable cardioverter-defibrillator), dual, in situ Chronic Nonsustained ventricular tachycardia Chronic Dyslipidemia (high LDL; low HDL) Chronic HTN (hypertension) Chronic
[2016-11-12 08:49] LABS: HEMATOCRIT 21.2 % (40.0-51.0); HEMOGLOBIN 7.4 g/dL (13.7-17.5)
[2016-11-12] MEDS: traMADol 50 MG TAB PO PRN ×2 (08:49→13:05)
[2016-11-12] MEDS: INSULIN GLARGINE 100 UNITS/ML SYRINGE SC SCH (08:50)
[2016-11-12] MEDS: METOPROLOL TARTRATE 25 MG TAB PO SCH ×2 (08:50→20:32)
[2016-11-12] MEDS: ASPIRIN 81 MG CHEWABLE TAB PO SCH (08:50)
[2016-11-12] MEDS: POTASSIUM CL 20 MEQ TAB PO SCH ×3 (08:51→20:34)
[2016-11-12] MEDS: MESALAMINE 400 MG CAP.DR PO SCH ×2 (08:51→20:35)
[2016-11-12] MEDS: MEMANTINE HCL 5 MG TAB PO SCH (08:51)
[2016-11-12] MEDS: AMIODARONE HCL 200 MG TAB PO SCH ×2 (08:51→20:34)
[2016-11-12] MEDS: FUROSEMIDE 40 MG TAB PO SCH ×2 (08:51→15:32)
[2016-11-12] MEDS: PANTOPRAZOLE SODIUM 40 MG TAB PO SCH (08:51)
[2016-11-12] MEDS: ASCORBIC ACID 500 MG TAB PO SCH (08:52)
[2016-11-12] MEDS: ATORVASTATIN CALCIUM 20 MG TAB PO SCH (08:52)
[2016-11-12] MEDS ORDERED: POTASSIUM CL 20 MEQ TAB PO ONE (09:04)
[2016-11-12] MEDS: INSULIN LISPRO 100 UNIT/ML SC SCH ×3 (09:20→18:07)
[2016-11-12] MEDS: HYDROCODONE/APAP 5/325 TAB PO PRN ×3 (10:33→23:35)
--- NOTE | 2016-11-12 13:35 | HOSPPROG ---
Hospitalist Progress Note Assessment/Plan: 56 yo M w recent AVR redo and new diabetes dm: presumed type 2 continue lantus 15- AM value of 143 suggestive of correct long acting dose lispro follow sugars ? neuropathy: suggest outpatient follow up proph: sc heparin hyponatremia: mild i do recommend following daily given ongoing lasix Subjective: case d/w ct surgery saran griffin. tele: no events (interp by me) Objective: Vital Signs Temp Pulse Resp BP Pulse Ox 36.5 C 75 22 H 109/67 98 11/12/16 11:17 11/12/16 13:13 11/12/16 13:13 11/12/16 13:13 11/12/16 13:13 Laboratory Results 11/12/16 08:40 11/12/16 03:45 11/11/16 11/12/16 11/13/16 05:59 05:59 05:59 Intake Total 2070 1060 100 Output Total 1672 3897 450 Balance 398 -2837 -350 PT 16.7 SEC (12.0-15.0) H 11/12/16 03:45 INR 1.35 (0.83-1.16) H 11/12/16 03:45 - Physical Exam Constitutional: no apparent distress, appears nourished Eyes: PERRL, anicteric sclera Ears, Nose, Mouth, Throat: moist mucous membranes, hearing normal Cardiovascular: regular rate and rhythym, no murmur, rub, or gallop, other ( sternotomy c/d/i) Respiratory: no respiratory distress, no rales or rhonchi Gastrointestinal: normoactive bowel sounds, soft, non-tender abdomen Genitourinary: No erwin in urethra Skin: warm, normal color Musculoskeletal: full muscle strength, no muscle tenderness Neurologic: AAOx3, sensation intact bilaterally ICD10 Worksheet Patient Problems: Problems Problem Status Onset Acute blood loss anemia Acute Prosthetic aortic valve stenosis Acute S/P aortic valve replacement with bioprosthetic valve Acute ~11/09/16 CAD in [place] artery Chronic Congestive heart failure (CHF) Chronic ICD (implantable cardioverter-defibrillator), dual, in situ Chronic Nonsustained ventricular tachycardia Chronic Dyslipidemia (high LDL; low HDL) Chronic HTN (hypertension) Chronic
--- NOTE | 2016-11-12 14:44 | ECHO ---
[id number] + + [address] : : [place] [address] : : [phone] + + Adult Echocardiographic Report + -----+ :Name: Kandice DACOSTAbaltazar Date: 11/12/2016 01:31 PM : : Hospital Admission Number: [id number] Location : 205: :: 1960 Gender: Male Height: 70 in : :Age: 56 yrs Race: WH Weight: 227 lb : :Reason For Study: S/P redo AVR #25 magna/eval LV/RV/valve : :function/R/O pericardial effusion BSA: 2.2 meters2 : + -----+ MMode/2D Measurements \T\ Calculations IVSd: 0.98 cm LVIDd: 4.3 cm FS: 26.9 % Ao root diam: 4.1 cm LVPWd: 1.2 cm LVIDs: 3.1 cm EDV(Teich): 82.8 ml LA dimension: 4.5 cm ESV(Teich): 39.1 ml EF(Teich): 52.8 % Normal Measurement Values: + + :LVIDd (3.5-5.7cm) IVSd (0.6-1.1cm) LVPWd (0.6-1.1cm) Aortic Root (2.0-3.7cm)Left Atrium (1.5-4.0cm): :LV Vol(d) (76-115ml) LV Vol(s) (29-48ml) Ejec Fraction (50-65%)PV Marcus (0.6- 1.2m/s) TV Marcus (0.4-1.0m/s) : :MV E Marcus (0.8-1.0m/s)MV A Marcus (0.3-1.0m/s)LVOT Marcus (0.7-1.2m/s) Asc Ao Marcus ( 0.9-1.8m/s) : + + Doppler Measurements \T\ Calculations MV E max marcus: MV V2 mean: MV P1/2t max marcus: Ao mean P.0 cm/sec 131.4 cm/sec 194.1 cm/sec 14.8 mmHg MV A max marcus: MV mean PG: MV P1/2t: 121.0 msec Ao V2 mean: 123.4 cm/sec 8.0 mmHg MVA(P1/2t): 1.8 cm2 185.2 cm/sec MV E/A: 1.6 MV V2 VTI: MV dec slope: Ao V2 VTI: MV dec time: 62.8 cm 470.0 cm/sec2 48.9 cm 0.43 sec TR max marcus: 249.8 cm/sec TR max P.0 mmHg RAP systole: 10.0 mmHg RVSP(TR): 35.0 mmHg Left Ventricle The left ventricle is normal in size. There is normal left ventricular wall thickness. Left ventricular systolic function is normal. Ejection Fraction = 60-65%. There is Doppler evidence for diastolic dysfunction. Septal motion is consistent with post-operative state. Right Ventricle The right ventricle is normal in size and function. There is a pacemaker lead in the right ventricle. ICD wire appears to be flush against the RV apex. Atria The left atrium is mildly dilated. Right atrial size is normal. The interatrial septum is intact with no evidence for an atrial septal defect. Mitral Valve An annuloplasty ring is noted in the mitral position. MV mean PG is 8mmHG. Tricuspid Valve Normal tricuspid valve. Right ventricular systolic pressure is normal. There is mild to moderate tricuspid regurgitation. Aortic Valve There is a bioprosthetic aortic valve. AV max PG is 24mmHG. AV mean PG is 15mmHG. Pulmonic Valve The pulmonic valve is normal in structure and function. There is no pulmonic valvular regurgitation. Great Vessels The aortic root is normal size. Pericardium/Pleural There is no pericardial effusion. Conclusion A complete two-dimensional transthoracic echocardiogram was performed (2D, M-mode, Doppler and color flow Doppler). Left ventricular systolic function is normal. Ejection Fraction = 60-65%. There is Doppler evidence for diastolic dysfunction. Septal motion is consistent with post-operative state. There is a pacemaker lead in the right ventricle. ICD wire appears to be flush against the RV apex. The left atrium is mildly dilated. An annuloplasty ring is noted in the mitral position. MV mean PG is 8mmHG. There is mild to moderate tricuspid regurgitation. Right ventricular systolic pressure is normal. There is a bioprosthetic aortic valve. AV max PG is 24mmHG. AV mean PG is 15mmHG. There is no pericardial effusion. Final Reading Physician: Rome Ribeiro signed on 11/12/2016 02:43 PM Ordering Physician: Sukumar Clay Performed By: Nay Banks RDCS
[2016-11-12 19:17] LABS: HEMATOCRIT 28.3 % (40.0-51.0)
[2016-11-12] MEDS: FLUoxetine 20 MG CAP PO SCH (20:34)
[2016-11-12] MEDS: ZOLPIDEM TARTRATE 5 MG TAB PO SCH (20:36)
[2016-11-13] MEDS: HYDROCODONE/APAP 5/325 TAB PO PRN ×3 (05:46→15:48)
[2016-11-13 06:22] LABS: INR 1.56 (0.83-1.16); PROTIME(PATIENT) 18.7 SEC (12.0-15.0)
[2016-11-13 06:52] LABS: ANION GAP 7 mEq/L (8-16); CALCIUM 7.8 mg/dL (8.5-10.4); CARBON DIOXIDE 30 mEq/l (22-31); CHLORIDE 99 mEq/L (97-110); CREATININE 0.6 mg/dL (0.7-1.3); GLOMERULAR FILTRATION RATE > 60; GLUCOSE 87 mg/dL (70-100); POTASSIUM 4.1 mEq/L (3.5-5.2); SODIUM 136 mEq/L (134-144)
--- NOTE | 2016-11-13 07:44 | SOAPPROG ---
SOAP Progress Note Assessment/Plan: Assessment: POD#4 redo AVR #25 Magna bovine pericardial bioprosthesis, preservation JACKMAN-LAD and SV-D1 grafts Sx severe bioprosthetic - Degenerated porcine valve replaced with bovine valve. Procedure well tolerated. Extubated in the OR. Antithrombotic prophylaxis with ASA alone, pending stability of rhythm. Chronic dCHF - No sig postop volume overload. No need for inotropic support. PVC freq controlled with Amio. Reintroduction of heart failure regimen in staggered fashion as tolerated. Presence of dual chamber ICD - Hx freq PVCs, short runs NSVT, rare pacing. Postop device fx normal by interrogation. Ventricular ectopy suppressed with Amio. HTN - Preop control with coreg, lisinopril and lasix. Postop control with low dose cardene gtt. Wean in progress. Coreg switched to metoprolol as LVEF normal. Acute expected blood loss anemia with mild coagulopathy - Stable. CTOP gradually less. No blood transfusions required. Care with VTE prophylaxis while plt count < 100. New diabetes - Suspected by preop A1c of 9.7%. Postop hyperglycemia managed with insulin gtt. Transition to basal/SSI as per ICU. Low threshold to obtain IM consult if correctional needs elevated. CAD - Patent grafts. No apparent periop ischemia. Secondary prevention with ASA , BB and statin when eating well. Plan: Remove mediastinal drain. Cont Lasix 40mg/KCL 20mEq BID. Cont metoprolol 25mg BID. Cont amio 200 mg BID. Resume Coumadin. 2.5 mg today. Consider lisinopril 5 mg daily if hypertensive. Glycemic control per IM. Inc mobility and pulm toilet. 11/13/16 07:41 Objective: Vital Signs Temp Pulse Resp BP Pulse Ox 36.6 C 70 18 109/64 98 11/13/16 04:00 11/13/16 04:00 11/13/16 04:00 11/13/16 04:00 11/13/16 04:00 Laboratory Results 11/12/16 19:00 11/13/16 06:00 11/12/16 11/13/16 11/14/16 05:59 05:59 05:59 Intake Total 1060 1690 Output Total 3897 3030 Balance -2837 -1340 PT 18.7 SEC (12.0-15.0) H 11/13/16 06:00 INR 1.56 (0.83-1.16) H 11/13/16 06:00 ICD10 Worksheet Patient Problems: Problems Problem Status Onset Acute blood loss anemia Acute Prosthetic aortic valve stenosis Acute S/P aortic valve replacement with bioprosthetic valve Acute ~11/09/16 CAD in [place] artery Chronic Congestive heart failure (CHF) Chronic ICD (implantable cardioverter-defibrillator), dual, in situ Chronic Nonsustained ventricular tachycardia Chronic Dyslipidemia (high LDL; low HDL) Chronic HTN (hypertension) Chronic
--- NOTE | 2016-11-13 09:09 | SOAPPROG ---
SOAP Progress Note Assessment/Plan: Assessment: POD#4 redo AVR #25 Magna bovine pericardial bioprosthesis, preservation JACKMAN-LAD and SV-D1 grafts Sx severe bioprosthetic - Degenerated porcine valve replaced with bovine valve. Procedure well tolerated. Extubated in the OR. Antithrombotic prophylaxis with Coumadin x 3 mo. Target INR 2-3. Adjunctive ASA until INR stable in therapeutic range. Chronic dCHF - No sig postop volume overload. No need for inotropic support. PVC freq controlled with Amio. Reintroduction of heart failure regimen in staggered fashion as tolerated. Presence of dual chamber ICD - Hx freq PVCs, short runs NSVT, rare pacing. Postop device fx normal by interrogation. Ventricular ectopy suppressed with Amio. HTN - Preop control with coreg, lisinopril and lasix. Postop control with low dose cardene gtt, transitioning to BB and BID diuretic. Coreg switched to metoprolol as LVEF normal. Acute expected blood loss anemia with mild coagulopathy - Stable s/p 2u PRBC. No evidence active bleeding. Care with anticoagulation. New diabetes - Suspected by preop A1c of 9.7%. Postop hyperglycemia managed with insulin gtt. Transition to basal/SSI as per ICU. Ongoing management and counseling per IM. CAD - Patent grafts. No apparent periop ischemia. Secondary prevention with ASA , BB and statin when eating well. Plan: Mediastinal drain removed. Cont Lasix 40mg/KCL 20mEq BID. Ck CXR. Cont metoprolol 25mg BID. Cont amio 200 mg BID. Resume Coumadin. 2.5 mg today. Glycemic control per IM. Inc mobility and pulm toilet. Dispo - Anticipate home next 48hrs. [facility] for diabetic oversight. 11/13/16 07:41 Subjective: In good spirits. [place] after blood. Slept well. Morning walk well tolerated. Objective: Vital Signs Temp Pulse Resp BP Pulse Ox 36.3 C 74 16 112/66 90 L 11/13/16 07:39 11/13/16 07:39 11/13/16 07:39 11/13/16 07:39 11/13/16 07:39 Laboratory Results 11/12/16 19:00 11/13/16 06:00 11/12/16 11/13/16 11/14/16 05:59 05:59 05:59 Intake Total 1060 1690 Output Total 3897 3030 Balance -2837 -1340 PT 18.7 SEC (12.0-15.0) H 11/13/16 06:00 INR 1.56 (0.83-1.16) H 11/13/16 06:00 2u PRBC yest for downward drifting H/H of unclear etiology. Anticoag held. Appropriate rise in H/H. Decr in suppl O2 req. HR, rhythm and BP remain stable. Cont to diurese well. +3 kg overall. CTOP dissipating. Med tube at removal criteria. - Pending Discharge Pending Discharge Within 48 Hours: Yes Pending Discharge Date: 11/15/16 Pending Discharge Time: 11:00 Physical Exam - Physical Exam General Appearance: alert, no apparent distress Respiratory: lungs clear (grossly), other (Blakes x 3 to bulb suction, serosang drainage w fibrinous stranding; med tube removed without difficulty) Cardiac/Chest: regular rate, rhythm (occ PVC), other (Sternum grossly stable. Sternotomy CDI) Abdomen: normal bowel sounds, non-tender, soft Skin: warm/dry Extremities: other (no visible edema) ICD10 Worksheet Patient Problems: Problems Problem Status Onset Acute blood loss anemia Acute Prosthetic aortic valve stenosis Acute S/P aortic valve replacement with bioprosthetic valve Acute ~11/09/16 CAD in [place] artery Chronic Congestive heart failure (CHF) Chronic ICD (implantable cardioverter-defibrillator), dual, in situ Chronic Nonsustained ventricular tachycardia Chronic Dyslipidemia (high LDL; low HDL) Chronic HTN (hypertension) Chronic
[2016-11-13] MEDS: INSULIN LISPRO 100 UNIT/ML SC SCH ×3 (09:33→17:53)
[2016-11-13] MEDS: AMIODARONE HCL 200 MG TAB PO SCH ×2 (09:34→20:36)
[2016-11-13] MEDS: MESALAMINE 400 MG CAP.DR PO SCH ×2 (09:34→20:37)
[2016-11-13] MEDS: METOPROLOL TARTRATE 25 MG TAB PO SCH ×2 (09:35→20:36)
[2016-11-13] MEDS: ASPIRIN 81 MG CHEWABLE TAB PO SCH (09:35)
[2016-11-13] MEDS: POTASSIUM CL 20 MEQ TAB PO SCH ×2 (09:35→20:37)
[2016-11-13] MEDS: MEMANTINE HCL 5 MG TAB PO SCH (09:35)
[2016-11-13] MEDS: ASCORBIC ACID 500 MG TAB PO SCH (09:35)
[2016-11-13] MEDS: PANTOPRAZOLE SODIUM 40 MG TAB PO SCH (09:35)
[2016-11-13] MEDS: ATORVASTATIN CALCIUM 20 MG TAB PO SCH (09:35)
[2016-11-13] MEDS: FUROSEMIDE 40 MG TAB PO SCH ×2 (09:35→15:16)
[2016-11-13] MEDS: INSULIN GLARGINE 100 UNITS/ML SYRINGE SC SCH (09:53)
--- NOTE | 2016-11-13 15:34 | HOSPPROG ---
Hospitalist Progress Note Assessment/Plan: 56 yo M w recent AVR redo and new diabetes dm: presumed type 2 continue lantus 15- AM value of 143 suggestive of correct long acting dose lispro follow sugars sugars at goal constipation: add metamucil ? neuropathy: suggest outpatient follow up proph: sc heparin hyponatremia: mild i do recommend following daily given ongoing lasix Subjective: sugars at goal. constipated Objective: Vital Signs Temp Pulse Resp BP Pulse Ox 36.5 C 73 12 125/77 H 96 11/13/16 15:11 11/13/16 15:11 11/13/16 11:55 11/13/16 15:11 11/13/16 15:11 Laboratory Results 11/12/16 19:00 11/13/16 06:00 11/12/16 11/13/16 11/14/16 05:59 05:59 05:59 Intake Total 1060 1690 680 Output Total 3897 3030 460 Balance -2837 -1340 220 PT 18.7 SEC (12.0-15.0) H 11/13/16 06:00 INR 1.56 (0.83-1.16) H 11/13/16 06:00 - Physical Exam Constitutional: no apparent distress, appears nourished Eyes: PERRL, anicteric sclera Ears, Nose, Mouth, Throat: moist mucous membranes, hearing normal Cardiovascular: regular rate and rhythym, no murmur, rub, or gallop Respiratory: no respiratory distress, no rales or rhonchi Gastrointestinal: normoactive bowel sounds, soft, non-tender abdomen Genitourinary: No erwin in urethra Skin: warm, normal color Musculoskeletal: full muscle strength, no muscle tenderness Neurologic: AAOx3, sensation intact bilaterally Psychiatric: interacting appropriately ICD10 Worksheet Patient Problems: Problems Problem Status Onset Acute blood loss anemia Acute Prosthetic aortic valve stenosis Acute S/P aortic valve replacement with bioprosthetic valve Acute ~11/09/16 CAD in [place] artery Chronic Congestive heart failure (CHF) Chronic ICD (implantable cardioverter-defibrillator), dual, in situ Chronic Nonsustained ventricular tachycardia Chronic Dyslipidemia (high LDL; low HDL) Chronic HTN (hypertension) Chronic
[2016-11-13 15:38] LABS: HEMATOCRIT 26.3 % (40.0-51.0); HEMOGLOBIN 9.5 g/dL (13.7-17.5)
[2016-11-13] MEDS: PSYLLIUM METAMUCIL 1 PKT PO SCH (15:47)
[2016-11-13] MEDS: FLUoxetine 20 MG CAP PO SCH (20:37)
[2016-11-13] MEDS: ZOLPIDEM TARTRATE 5 MG TAB PO SCH (20:38)
[2016-11-13] MEDS: OXYCODONE/APAP 5/325 TAB PO PRN (20:48)
[2016-11-13] MEDS: LISINOPRIL 2.5 MG TAB PO SCH (20:49)
[2016-11-14] MEDS: HYDROCODONE/APAP 5/325 TAB PO PRN ×3 (00:09→20:23)
[2016-11-14 06:03] LABS: HEMATOCRIT 27.4 % (40.0-51.0); HEMOGLOBIN 9.5 g/dL (13.7-17.5); MEAN CELL HEMOGLOBIN 32.6 pg (27.9-34.1); MEAN CELL HEMOGLOBIN CONCENTR. 34.7 g/dL (32.4-36.7); MEAN CELL VOLUME 94.2 fL (81.5-99.8); RED BLOOD CELL COUNT 2.91 10^6/uL (4.40-6.38); RED CELL DISTRIBUTION WIDTH 13.3 % (11.5-15.2)
[2016-11-14 06:16] LABS: INR 1.43 (0.83-1.16); PROTIME(PATIENT) 17.4 SEC (12.0-15.0)
[2016-11-14 06:55] LABS: ANION GAP 8 mEq/L (8-16); CALCIUM 8.3 mg/dL (8.5-10.4); CARBON DIOXIDE 31 mEq/l (22-31); CHLORIDE 98 mEq/L (97-110); CREATININE 0.6 mg/dL (0.7-1.3); GLOMERULAR FILTRATION RATE > 60; GLUCOSE 109 mg/dL (70-100); POTASSIUM 3.9 mEq/L (3.5-5.2); SODIUM 137 mEq/L (134-144)
[2016-11-14] MEDS: INSULIN LISPRO 100 UNIT/ML SC SCH ×3 (07:38→17:09)
--- NOTE | 2016-11-14 07:47 | SOAPPROG ---
SOAP Progress Note Assessment/Plan: Assessment: POD#5 redo AVR #25 Magna bovine pericardial bioprosthesis, preservation JACKMAN-LAD and SV-D1 grafts Sx severe bioprosthetic - Degenerated porcine valve replaced with bovine valve. Procedure well tolerated. Extubated in the OR. Antithrombotic prophylaxis with Coumadin x 3 mo. Target INR 2-3. Adjunctive ASA until INR stable in therapeutic range. Chronic dCHF - No sig postop volume overload. No need for inotropic support. PVC freq controlled with Amio. Reintroduction of heart failure regimen in staggered fashion as tolerated. Presence of dual chamber ICD - Hx freq PVCs, short runs NSVT, rare pacing. Postop device fx normal by interrogation. Ventricular ectopy suppressed with Amio. HTN - Preop control with coreg, lisinopril and lasix. Postop control with low dose cardene gtt, transitioning to BB and BID diuretic. Coreg switched to metoprolol as LVEF normal. Acute expected blood loss anemia with mild coagulopathy - Stable s/p 2u PRBC. No evidence active bleeding. Care with anticoagulation. New diabetes - Suspected by preop A1c of 9.7%. Postop hyperglycemia managed with insulin gtt. Transition to basal/SSI as per ICU. Ongoing management and counseling per IM. CAD - Patent grafts. No apparent periop ischemia. Secondary prevention with ASA , BB and statin when eating well. Plan: Pleural blakes removed. Relax diuresis to lasix/KCL to 40mg/20mEq once daily. Cont Metoprolol 25 mg BID. Cont Amio 200mg BID. Reduce to once daily at discharge. Cont Lisinopril 2.5 mg hs. Coumadin 2.5 mg today. Cont inc activity and aggressive pulm toilet. Glycemic control per IM. Dispo - Anticipate home tomorrow w [facility] for coumadin and insulin monitoring. 11/14/16 07:44 Subjective: Feels well. No acute concerns. Hopeful for home (with niece) tomorrow. Objective: Vital Signs Temp Pulse Resp BP Pulse Ox 36.6 C 75 22 H 122/76 H 93 11/14/16 07:19 11/14/16 07:19 11/14/16 07:19 11/14/16 07:19 11/14/16 07:19 Laboratory Results 11/14/16 05:40 11/14/16 05:40 11/13/16 11/14/16 11/15/16 05:59 05:59 05:59 Intake Total 1690 2450 Output Total 3030 3605 Balance -1340 -1155 PT 17.4 SEC (12.0-15.0) H 11/14/16 05:40 INR 1.43 (0.83-1.16) H 11/14/16 05:40 Cardioresp status stable. Sufficient BP to start low dose ACEI last noc. Minimal suppl O2 req. CTOP thin and nearing removal criteria. Excellent I/Os. Now within 0.5 kg of preop wt. Labs ok. Physical Exam - Physical Exam General Appearance: alert, no apparent distress Respiratory: crackles (bases), other (Pleural blakes to bulb suction, serosang drainage with fibrinous stranding. Both tubes removed without difficulty.) Cardiac/Chest: regular rate, rhythm, other (Sternum grossly stable. Sternotomy CDI) Abdomen: non-tender, soft Skin: warm/dry Extremities: other (no visible edema) ICD10 Worksheet Patient Problems: Problems Problem Status Onset Acute blood loss anemia Acute Prosthetic aortic valve stenosis Acute S/P aortic valve replacement with bioprosthetic valve Acute ~11/09/16 CAD in [place] artery Chronic Congestive heart failure (CHF) Chronic ICD (implantable cardioverter-defibrillator), dual, in situ Chronic Nonsustained ventricular tachycardia Chronic Dyslipidemia (high LDL; low HDL) Chronic HTN (hypertension) Chronic
[2016-11-14] MEDS: INSULIN GLARGINE 100 UNITS/ML SYRINGE SC SCH (09:25)
[2016-11-14] MEDS: ASCORBIC ACID 500 MG TAB PO SCH (09:26)
[2016-11-14] MEDS: ATORVASTATIN CALCIUM 20 MG TAB PO SCH (09:26)
[2016-11-14] MEDS: PSYLLIUM METAMUCIL 1 PKT PO SCH (09:26)
[2016-11-14] MEDS: POTASSIUM CL 20 MEQ TAB PO SCH (09:26)
[2016-11-14] MEDS: MEMANTINE HCL 5 MG TAB PO SCH (09:26)
[2016-11-14] MEDS: ASPIRIN 81 MG CHEWABLE TAB PO SCH (09:27)
[2016-11-14] MEDS: FUROSEMIDE 40 MG TAB PO SCH (09:27)
[2016-11-14] MEDS: METOPROLOL TARTRATE 25 MG TAB PO SCH ×2 (09:27→20:22)
[2016-11-14] MEDS: MESALAMINE 400 MG CAP.DR PO SCH ×2 (09:27→20:23)
[2016-11-14] MEDS: PANTOPRAZOLE SODIUM 40 MG TAB PO SCH (09:27)
[2016-11-14] MEDS: AMIODARONE HCL 200 MG TAB PO SCH ×2 (09:27→20:23)
--- NOTE | 2016-11-14 15:47 | HOSPPROG ---
Hospitalist Progress Note Assessment/Plan: 56 yo M w recent AVR redo and new diabetes dm: presumed type 2 continue lantus 15- AM value of 143 suggestive of correct long acting dose lispro follow sugars sugars at goal constipation: add metamucil ? neuropathy: suggest outpatient follow up proph: sc heparin hyponatremia: mild i do recommend following daily given ongoing lasix recommend discharging on: 1. lantus 15 daily alone 2. test strips 3. glucometer 4. check blood sugars in AM and before dinner 5. follow up w pcp in 2-3 weeks hosp med will sign off ;please call w questions Subjective: sugars at goal Objective: Vital Signs Temp Pulse Resp BP Pulse Ox 36.3 C 72 18 123/72 H 94 11/14/16 11:27 11/14/16 11:27 11/14/16 11:27 11/14/16 11:27 11/14/16 11:27 Laboratory Results 11/14/16 05:40 11/14/16 05:40 11/13/16 11/14/16 11/15/16 05:59 05:59 05:59 Intake Total 1690 2450 Output Total 3030 3605 300 Balance -1340 -1155 -300 PT 17.4 SEC (12.0-15.0) H 11/14/16 05:40 INR 1.43 (0.83-1.16) H 11/14/16 05:40 - Physical Exam Constitutional: no apparent distress, appears nourished Eyes: PERRL, anicteric sclera Ears, Nose, Mouth, Throat: moist mucous membranes, hearing normal Cardiovascular: regular rate and rhythym, no murmur, rub, or gallop Respiratory: no respiratory distress, no rales or rhonchi Gastrointestinal: normoactive bowel sounds, soft, non-tender abdomen Genitourinary: No erwin in urethra Skin: warm Musculoskeletal: full muscle strength Neurologic: AAOx3 ICD10 Worksheet Patient Problems: Problems Problem Status Onset Acute blood loss anemia Acute Prosthetic aortic valve stenosis Acute S/P aortic valve replacement with bioprosthetic valve Acute ~11/09/16 CAD in [place] artery Chronic Congestive heart failure (CHF) Chronic ICD (implantable cardioverter-defibrillator), dual, in situ Chronic Nonsustained ventricular tachycardia Chronic Dyslipidemia (high LDL; low HDL) Chronic HTN (hypertension) Chronic
[2016-11-14] MEDS ORDERED: WARFARIN SODIUM 2.5 MG TAB PO SCH (16:00)
[2016-11-14] MEDS: FLUoxetine 20 MG CAP PO SCH (20:23)
[2016-11-14] MEDS: LISINOPRIL 2.5 MG TAB PO SCH (20:23)
[2016-11-14] MEDS: ZOLPIDEM TARTRATE 5 MG TAB PO SCH (20:24)
[2016-11-15] MEDS: HYDROCODONE/APAP 5/325 TAB PO PRN ×2 (05:24→15:20)
[2016-11-15 05:32] LABS: HEMATOCRIT 29.1 % (40.0-51.0)
[2016-11-15 05:50] LABS: INR 1.35 (0.83-1.16); PROTIME(PATIENT) 16.7 SEC (12.0-15.0)
[2016-11-15 05:52] LABS: POTASSIUM 3.8 mEq/L (3.5-5.2)
--- NOTE | 2016-11-15 07:33 | SOAPPROG ---
SOAP Progress Note Assessment/Plan: Assessment: POD#6 redo AVR #25 Magna bovine pericardial bioprosthesis, preservation JACKMAN-LAD and SV-D1 grafts Sx severe bioprosthetic - Degenerated porcine valve replaced with bovine valve. Procedure well tolerated. Extubated in the OR. Antithrombotic prophylaxis with ASA/Coumadin. Chronic dCHF - No sig postop volume overload. No need for inotropic support. PVC freq controlled with Amio. Continue eart failure regimen. Presence of dual chamber ICD - Postop device fx normal by interrogation. HTN - Preop control with coreg, lisinopril and lasix. BB (metoprolol) started as LVEF normal. Acute expected blood loss anemia - stable s/p 2U PRBCs New diabetes - Suspected by preop A1c of 9.7%. Postop hyperglycemia managed with insulin gtt. Transitioned to Lantus as per IM. Pt taught injections/BS checks. CAD - Patent grafts. No apparent periop ischemia. Secondary prevention with ASA , BB and statin. Subjective: Feels well. Multiple questions regarding d/c asked and answered. Objective: Vital Signs Temp Pulse Resp BP Pulse Ox 36.6 C 79 20 124/77 H 92 11/15/16 04:00 11/15/16 04:00 11/15/16 04:00 11/15/16 04:00 11/15/16 04:00 Laboratory Results 11/15/16 05:20 11/15/16 05:20 11/14/16 11/15/16 11/16/16 05:59 05:59 05:59 Intake Total 2450 1500 Output Total 3605 1750 Balance -1155 -250 PT 16.7 SEC (12.0-15.0) H 11/15/16 05:20 INR 1.35 (0.83-1.16) H 11/15/16 05:20 Physical Exam - Physical Exam General Appearance: WD/WN, alert, no apparent distress EENT: normal ENT inspection Neck: normal inspection Respiratory: No respiratory distress Cardiac/Chest: regular rate, rhythm Abdomen: non-tender, soft, No distended Skin: normal color, warm/dry Extremities: No pedal edema Neuro/Psych: no motor/sensory deficits, alert, normal mood/affect, oriented x 3 ICD10 Worksheet Patient Problems: Problems Problem Status Onset Acute blood loss anemia Acute Prosthetic aortic valve stenosis Acute S/P aortic valve replacement with bioprosthetic valve Acute ~11/09/16 CAD in [place] artery Chronic Congestive heart failure (CHF) Chronic ICD (implantable cardioverter-defibrillator), dual, in situ Chronic Nonsustained ventricular tachycardia Chronic Dyslipidemia (high LDL; low HDL) Chronic HTN (hypertension) Chronic
[2016-11-15] MEDS ORDERED: POTASSIUM CL 20 MEQ TAB PO ONE (07:38)
[2016-11-15] MEDS: ASCORBIC ACID 500 MG TAB PO SCH (08:33)
[2016-11-15] MEDS: ASPIRIN 81 MG CHEWABLE TAB PO SCH (08:33)
[2016-11-15] MEDS: METOPROLOL TARTRATE 25 MG TAB PO SCH (08:33)
[2016-11-15] MEDS: AMIODARONE HCL 200 MG TAB PO SCH (08:33)
[2016-11-15] MEDS: MESALAMINE 400 MG CAP.DR PO SCH (08:34)
[2016-11-15] MEDS: FUROSEMIDE 40 MG TAB PO SCH (08:34)
[2016-11-15] MEDS: POTASSIUM CL 20 MEQ TAB PO SCH (08:34)
[2016-11-15] MEDS: PSYLLIUM METAMUCIL 1 PKT PO SCH (08:35)
[2016-11-15] MEDS: ATORVASTATIN CALCIUM 20 MG TAB PO SCH (08:35)
[2016-11-15] MEDS: MEMANTINE HCL 5 MG TAB PO SCH (08:35)
[2016-11-15] MEDS: PANTOPRAZOLE SODIUM 40 MG TAB PO SCH (08:35)
[2016-11-15] MEDS: INSULIN LISPRO 100 UNIT/ML SC SCH ×2 (10:08→15:14)
[2016-11-15] MEDS: INSULIN GLARGINE 100 UNITS/ML SYRINGE SC SCH (10:14)
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
[2016-11-15 13:38] VITALS: BP 123/76; PULSE 81; RESP 16; TEMP 97.8; O2SAT 91
[2016-11-15] MEDS ORDERED: WARFARIN SODIUM 4 MG TAB PO SCH (16:00)
--- NOTE | 2016-11-15 19:54 | PDDCSUM ---
Discharge Summary Discharge Summary: ADMISSION DATE: 11/08/16 DISCHARGE DATE: 11/15/16 ADMISSION DX: 1. Severe bioprosthetic aortic valve stenosis 2. h/o bioprosthetic AVR, CABGx2 (JACKMAN-LAD, SVG-D1), MV repair with #30 Physio ring, reduction aortoplasty, prophylactic ligation of left atrial appendage on 05/26/2015 3. Diabetes, newly diagnosed 4. Class II diastolic CHF 5. Presence of AICD DISCHARGE DX: 1. Severe bioprosthetic aortic valve stenosis 2. h/o bioprosthetic AVR, CABGx2 (JACKMAN-LAD, SVG-D1), MV repair with #30 Physio ring, reduction aortoplasty, prophylactic ligation of left atrial appendage on 05/26/2015 3. Diabetes, newly diagnosed 4. Class II diastolic CHF 5. Presence of AICD 6. Acute blood loss anemia PROCEDURES 11/09/16, Ernesto Abdi: 1. Reoperation AVR with #25 Magna bioprosthesis HOSPITAL COURSE BY PROBLEM LIST 1. Severe bioprosthetic aortic valve stenosis s/p reoperation AVR with #25 Magna bioprosthesis - stable postoperative course. 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 2. h/o CABG, MV repair, reduction aortoplasty, ligation JORDON - stable. 3. Diabetes, newly diagnosed - IM consulted and Lantus 15 units daily prescribed with adequate blood sugar control. Home PCP in [place] to manage further. 4. Class II diastolic CHF - BB, ACEi, and Lasix regimen restarted 5. Presence of AICD - device interrogated post-operatively and functioning correctly. 6. Post-operative acute blood loss anemia - 2 units PRBC transfused with adequate response in HCT. CONDITION Good DISPOSITION Home with health services ACTIVITY Pt was instructed on sternal precautions, activity limitations, and which problems to call [facility] with. Please see Discharge Plan in chart as well as Interagency Discharge Form for specifics. D/C MEDICATIONS 1. Aspirin [Aspirin 81mg (*)] 81 mg PO DAILY 2. Atorvastatin Calcium [Lipitor 20 mg (*)] 20 mg PO DAILY 3. Cyclobenzaprine [Flexeril 10 MG (*)] 10 mg PO HS PRN 4. Mesalamine [Delzicol] 400 mg PO BID 5. FLUoxetine [Prozac 20 MG (*)] 20 mg PO DAILY 6. Memantine HCl [Namenda 5 mg (*)] 5 mg PO DAILY 7. Ascorbic Acid [Vitamin C 500 mg (*)] 500 mg PO DAILY 8. Zolpidem Tartrate [Ambien 5MG (*)] 10 mg PO HS 9. Acetaminophen [Tylenol 325mg (*)] 325 - 650 mg PO Q4HRS PRN 10. Amiodarone HCl [Pacerone (*)] 200 mg PO DAILY #30 11. Furosemide [Lasix 40 MG (*)] 40 mg PO DAILY #30 12. Hydrocodone/APAP 5/325 [[place] 5/325 (*)] 1 - 2 tab PO Q4HRS PRN #50 13. Insulin Glargine [Lantus 100 UNITS/ML (*)] 15 units SC DAILY 14. Lisinopril [Zestril 2.5 mg (*)] 2.5 mg PO HS #30 15. Metoprolol Tartrate [Lopressor 25 mg (*)] 25 mg PO BID #60 16. Potassium Cl [Klor-Con 20 meq (*)] 20 meq PO DAILY #30 17. Warfarin Sodium [Coumadin 4MG (*)] 4 mg PO DAILY AT 4PM #30 (INR goal 2-3) PENDING STUDIES/LABS 1. Daily INR 2. CXR PA/lateral prior to surgical follow-up F/U APPOINTMENTS 1. Ernesto Abdi - 11/20/16, 10:45 AM 2. Jasper Levy - to be determined at surgical follow-up
[2016-11-16] MEDS ORDERED: AMIODARONE HCL 200 MG TAB PO SCH (09:00)
== END 2016-11-15 15:53 | disposition home health service (06) | DRG 216 ==
LOC: F2N 10:29 → F2W 14:42 → F2N 11-09 07:15 → F2W 11-11 11:05
PROVIDERS: ADMIT Thoracic Surgery (Cardiothoracic Vascular Surgery); ATTEND Thoracic Surgery (Cardiothoracic Vascular Surgery)
PROC: B2131ZZ Fluoroscopy of Multiple Coronary Artery Bypass Grafts using Low Osmolar Contrast (ICD-10-PCS; 2016-11-08)
PROC: B2111ZZ Fluoroscopy of Multiple Coronary Arteries using Low Osmolar Contrast (ICD-10-PCS; 2016-11-08)
PROC: 30233P1 Transfusion of Nonautologous Frozen Red Cells into Peripheral Vein, Percutaneous Approach (ICD-10-PCS; 2016-11-08)
PROC: 5A1221Z Performance of Cardiac Output, Continuous (ICD-10-PCS; principal; 2016-11-09 08:15)
PROC: 02RF08Z Replacement of Aortic Valve with Zooplastic Tissue, Open Approach (ICD-10-PCS; principal; 2016-11-09 08:15)
DX: T82.857A Stenosis of other cardiac prosthetic devices, implants and grafts, initial encounter (principal); I50.43 Acute on chronic combined systolic (congestive) and diastolic (congestive) heart failure; I25.810 Atherosclerosis of coronary artery bypass graft(s) without angina pectoris; E87.1 Hypo-osmolality and hyponatremia; D62 Acute posthemorrhagic anemia; I25.5 Ischemic cardiomyopathy; E66.9 Obesity, unspecified; I11.0 Hypertensive heart disease with heart failure; E78.5 Hyperlipidemia, unspecified; E11.65 Type 2 diabetes mellitus with hyperglycemia; E11.40 Type 2 diabetes mellitus with diabetic neuropathy, unspecified; K52.9 Noninfective gastroenteritis and colitis, unspecified; Z95.810 Presence of automatic (implantable) cardiac defibrillator
CPT/HCPCS: 82947-QW; 97116-GP; 97161-GP; 97166-GO; 97530-GO; 97535-GO; C1760; J0153; J0171; J0282; J0690; J1100; J1250; J1265; J1644; J1815; J1885; J2001; J2150; J2250; J2260; J2310; J2370; J2405; J2704; J2720; J2765; J2930; J3010; J7060; P9016; P9040; P9041; Q9967

== ENCOUNTER → 2016-11-20 | Outpatient (CLI) | payer BC | LOC: FIMAGING 09:52 | PROVIDERS: ATTEND Thoracic Surgery (Cardiothoracic Vascular Surgery) | DX: J90 Pleural effusion, not elsewhere classified (principal); Z95.3 Presence of xenogenic heart valve ==

== ENCOUNTER 2017-09-04 17:27 | Inpatient (IN) | payer BC, OTHER ==
--- NOTE | 2017-09-04 17:39 | CPEKG ---
Heart Rate: 76 RR Interval: 789 P-R Interval: 204 QRSD Interval: 110 QT Interval: 472 QTC Interval: 531 P [place]: 66 QRS [place]: -51 T Wave [place]: 34 EKG Severity - ABNORMAL ECG - EKG Impression: SINUS RHYTHM EKG Impression: LEFT ANTERIOR FASCICULAR BLOCK EKG Impression: PROBABLE LEFT VENTRICULAR HYPERTROPHY Electronically Signed By: Jasper Peacock 06-Sep-2017 12:52:49
[2017-09-04] MEDS ORDERED: RANITIDINE 50 MG/2 ML VIAL IVP ONE (17:48)
[2017-09-04] MEDS ORDERED: methylPREDNISolone SOD SUCC 125 MG/2 ML VIAL IVP ONE (17:48)
--- NOTE | 2017-09-04 17:49 | EDPHY ---
HPI/HX/ROS/PE/MDM Narrative: CHIEF COMPLAINT: Rash, rib pain HPI: The patient is a 57 y/o male with significant cardiac history who presents with acute onset rash and left lower rib pain that began during a flight a couple hours ago. He was longterm through a flight from [place] to [place] when he noticed itching in both hands. This progressed to swelling in all fingers making it difficult to make a fist. At the same time he developed left lower anterior chest pain he describes as "like someone hit me in the rib." By the time his flight landed his hands were "solid red and burning." He noticed this rash extended up his arms and onto his chest and legs. He thinks he only consumed Pepsi today and cannot identify any precipitating causes for his symptoms. He denies recent changes to his medications, abnormal skin contact or ingestions, recent animal contact, or use of new personal care products. He has no prior history of symptoms like this or prior allergic reactions. No respiratory involvement, difficulty swallowing, facial swelling, recent illness , or fever. He notes he has been constipated for the last 4 days. REVIEW OF SYSTEMS: Aside from elements discussed in the HPI, a comprehensive 10-point review of systems was reviewed and is negative. PMH: 1. Severe bioprosthetic aortic valve stenosis 2. History of bioprosthetic AVR and reoperation AVR with #25 Magna bioprosthesis , CABGx2 (JACKMAN-LAD, SVG-D1), MV repair with #30 Physio ring, reduction aortoplasty, prophylactic ligation of left atrial appendage. On Warfarin. 3. Diabetes (?) was temporarily on insulin after most recent cardiac surgery November 2016, has since discontinued under PCP's guidance. 4. Class II diastolic CHF 5. Presence of AICD 6. Colectomy 7. Uvulopalatopharyngoplasty Prior medical records reviewed including admission and cardiology notes 11/08/16. SOCIAL HISTORY: Lives in [place], [place]. Single. 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 Abdi PHYSICAL EXAM: General:Patient is alert, in no acute distress. ENT:Eyes are normal to inspection. ENT inspection normal. Neck: Normal inspection. Full range of motion. Respiratory:No respiratory distress. Breath sounds normal bilaterally. Cardiovascular: Regular rate and rhythm. Strong peripheral pulses. Normal cap refill. Abdomen:The abdomen is nontender to palpation. There are no peritoneal signs. There are normal bowel sounds. Back: Normal to inspection. No tenderness to palpation. Skin: Normal color. Diffuse urticaria all extremities and chest with erythema of both hands. Warm and dry. Extremities: Normal appearance. Full range of motion. Neuro: Oriented x3. Normal motor function. Normal sensory function. ED Course: This is a 57 y/o male with significant cardiac history who presents with a few- hour history of a pruritic rash that began on both hands and spread to his chest , legs, and feet while on a flight. He has left lower anterior rib pain as well. He cannot identify obvious precipitating factor for his symptoms and has no known allergies. He has a diffuse urticarial rash most pronounced on both hands, but otherwise has an unremarkable exam. Presentation appears to be allergic, despite no known trigger. Plan to treat with standard allergic reaction medications minus epinephrine due to cardiac history. IV established, labs drawn, EKG and chest x-ray ordered. 50mg IV Ranitidine, 50mg IV Benadryl, 125mg IV Solumedrol, and 1L IV NS administered for symptoms. The 12 lead EKG was interpreted by myself. Sinus mechanism. See hard copy and/ or "tracemaster" electronic copy for interpretation. Chest x-ray: postoperative changes, nothing acute. Reassessed patient. He looks only slightly improved with some decrease in his hand swelling. He is continuing to have chest pain and feels poor. He would like to be admitted. Spoke with Dr. Pederson, hospitalist. He accepts admission. MDM: This patient presents with what appears to be an episode of anaphylaxis of unknown etiology. His presentation and treatment are complicated by history of CABG and fairly recent valve repair surgery, and active chest pain that began during onset of rash and is still present. His ECG shows no signs of STEMI and initial troponin is negative. I think he is high-risk enough to necessitate admission to the hospital for observation of rash and further workup of chest pain. - Data Points Imaging Results: Imaging Impressions Chest X-Ray 09/04/17 17:48 Impression: 1. Postoperative changes related to previous open heart surgery. 2. No active cardiopulmonary disease seen. Imaging: I viewed and interpreted images myself Laboratory Results: Laboratory Results 09/04/17 17:50 09/04/17 17:50 09/04/17 09/04/17 09/04/17 18:00 17:50 17:50 WBC 12.84 10^3/uL H 10^3/uL (3.80-9.50) RBC 4.25 10^6/uL L 10^6/uL (4.40-6.38) Hgb 15.1 g/dL g/dL (13.7-17.5) Hct 40.8 % % (40.0-51.0) MCV 96.0 fL fL (81.5-99.8) MCH 35.5 pg H pg (27.9-34.1) MCHC 37.0 g/dL H g/dL (32.4-36.7) RDW 12.6 % % (11.5-15.2) Plt Count 201 10^3/uL 10^3/uL (150-400) MPV 10.7 fL fL (8.7-11.7) Neut % (Auto) 87.5 % H % (39.3-74.2) Lymph % (Auto) 8.6 % L % (15.0-45.0) Gordon % (Auto) 2.4 % L % (4.5-13.0) Eos % (Auto) 0.3 % L % (0.6-7.6) Baso % (Auto) 0.2 % L % (0.3-1.7) Nucleat RBC Rel Count 0.0 % % (0.0-0.2) Absolute Neuts (auto) 11.22 10^3/uL H 10^3/uL (1.70-6.50) Absolute Lymphs (auto) 1.11 10^3/uL 10^3/uL (1.00-3.00) Absolute Monos (auto) 0.31 10^3/uL 10^3/uL (0.30-0.80) Absolute Eos (auto) 0.04 10^3/uL 10^3/uL (0.03-0.40) Absolute Basos (auto) 0.03 10^3/uL 10^3/uL (0.02-0.10) Absolute Nucleated RBC 0.00 10^3/uL 10^3/uL (0-0.01) Immature Gran % 1.0 % % (0.0-1.1) Immature Gran # 0.13 10^3/uL H 10^3/uL (0.00-0.10) PT Pending INR Pending APTT Pending Sodium 140 mEq/L mEq/L (135-145) Potassium 4.1 mEq/L mEq/L (3.5-5.2) Chloride 107 mEq/L mEq/L (97-110) Carbon Dioxide 14 mEq/l L mEq/l (22-31) Anion Gap 19 mEq/L H mEq/L (8-16) BUN 13 mg/dL mg/dL (7-23) Creatinine 0.8 mg/dL mg/dL (0.7-1.3) Estimated GFR > 60 Glucose 117 mg/dL H mg/dL (70-100) Calcium 9.8 mg/dL mg/dL (8.5-10.4) Troponin I < 0.012 ng/mL ng/mL (0.000-0.034) Medications Given: Discontinued Medications Diphenhydramine HCl (Benadryl Injection) 50 mg IVP EDNOW ONE Stop: 09/04/17 17:49 Last Admin: 09/04/17 17:51 Dose: 50 mg Methylprednisolone Sodium Succinate (Solu-Medrol) 125 mg IVP EDNOW ONE Stop: 09/04/17 17:49 Last Admin: 09/04/17 17:51 Dose: 125 mg Ranitidine HCl (Zantac) 50 mg IVP EDNOW ONE Stop: 09/04/17 17:49 Last Admin: 09/04/17 17:51 Dose: 50 mg General Time Seen by Provider: 09/04/17 17:30 Initial Vital Signs: Initial Vital Signs Temperature (C) 36.7 C 09/04/17 17:31 Heart Rate 78 09/04/17 17:31 Respiratory Rate 19 09/04/17 17:31 Blood Pressure 128/77 H 09/04/17 17:31 O2 Sat (%) 94 09/04/17 17:31 O2 Delivery Mode Room Air Allergies/Adverse Reactions: No Known Allergies Allergy (Verified 09/04/17 17:30) Home Medications: Medication Instructions Recorded Aspirin [Aspirin 81mg (*)] 81 mg PO DAILY 08/02/15 Atorvastatin Calcium [Lipitor 20 20 mg PO DAILY 08/02/15 mg (*)] Cyclobenzaprine [Flexeril 10 MG 10 mg PO HS PRN 08/02/15 (*)] Mesalamine [Delzicol] 400 mg PO BID 10/12/16 FLUoxetine [Prozac 20 MG (*)] 20 mg PO DAILY 10/31/16 Memantine HCl [Namenda 5 mg (*)] 5 mg PO DAILY 10/31/16 Ascorbic Acid [Vitamin C 500 mg 500 mg PO DAILY 11/08/16 (*)] Zolpidem Tartrate [Ambien 5MG (*)] 10 mg PO HS 11/08/16 Acetaminophen [Tylenol 325mg (*)] 325 - 650 mg PO Q4HRS PRN #0 tab 11/15/16 Amiodarone HCl [Pacerone (*)] 200 mg PO DAILY #30 tab 11/15/16 Metoprolol Tartrate [Lopressor 25 25 mg PO BID #60 tab 11/15/16 mg (*)] Furosemide [Lasix 40 MG (*)] 20 mg PO BID@,15 09/04/17 Lisinopril [Zestril 5 mg (*)] 5 mg PO DAILY 09/04/17 Potassium Cl [Klor-Con 20 meq (*)] 10 meq PO BID@,15 09/04/17 Warfarin Sodium [Coumadin 4MG (*)] 2 mg PO DAILY@16 09/04/17 metFORMIN HCL [Glucophage 500 mg 500 mg PO BIDMEAL 09/04/17 (*)] Departure - Departure Disposition: [facility] Acute Clinical Impression: Chest wall pain, Urticaria Allergic reaction Qualifiers: Encounter type: initial encounter Qualified Code(s): T78.40XA - Allergy, unspecified, initial encounter Constipation Qualifiers: Constipation type: other constipation type Qualified Code(s): K59.09 - Other constipation Condition: Good Report Scribed for: Ryan Nuno Report Scribed by: Chari Neumann Date of Report: 09/04/17 Time of Report: 17:36 Physician Review and Approval Statement: Portions of this note were transcribed by an ED scribe. I personally performed the history, physical exam, and medical decision making; and confirm the accuracy of the information in the transcribed note.
[2017-09-04 18:03] LABS: PLATELET COUNT 201 10^3/uL (150-400)
[2017-09-04 20:52] LABS: INR 1.13 (0.83-1.16); PROTIME(PATIENT) 14.7 SEC (12.0-15.0)
[2017-09-04] MEDS ORDERED: ONDANSETRON 4 MG/2 ML VIAL IVP PRN (22:05)
[2017-09-04] MEDS ORDERED: ONDANSETRON DISINTEGRATING 4 MG TAB PO PRN (22:05)
[2017-09-04] MEDS: ACETAMINOPHEN 325 MG TAB PO PRN (22:53)
[2017-09-04] MEDS: DIPHENHYDRAMINE CREAM TP PRN (22:54)
[2017-09-04] MEDS: diphenhydrAMINE 25 MG CAP PO SCH (23:13)
[2017-09-04] MEDS: methylPREDNISolone SOD SUCC 125 MG/2 ML VIAL IVP SCH (23:15)
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
[2017-09-05] MEDS: methylPREDNISolone SOD SUCC 125 MG/2 ML VIAL IVP SCH ×4 (05:20→23:26)
[2017-09-05] MEDS: DIPHENHYDRAMINE CREAM TP PRN (05:20)
[2017-09-05] MEDS: diphenhydrAMINE 25 MG CAP PO SCH ×4 (05:21→23:26)
[2017-09-05 05:34] LABS: PLATELET COUNT 172 10^3/uL (150-400)
[2017-09-05] MEDS: ENOXAPARIN 40 MG/0.4 ML SYR SC SCH (08:31)
[2017-09-05] MEDS: FAMOTIDINE 20 MG TAB PO SCH ×2 (08:31→21:49)
[2017-09-05] MEDS ORDERED: PNEUMOCOCCAL 0.5ML VACCINE VIAL IM ONE (08:54)
[2017-09-05] MEDS ORDERED: FLU VACC QS 2017-18 (3YR+)/PF 0.5 ML SYR (FLUARIX QUAD) IM ONE (08:55)
[2017-09-05] MEDS: ACETAMINOPHEN 325 MG TAB PO PRN (11:58)
[2017-09-05] MEDS ORDERED: CYCLOBENZAPRINE 10 MG TAB PO PRN (12:56)
[2017-09-05] MEDS: ATORVASTATIN CALCIUM 20 MG TAB PO SCH (13:45)
[2017-09-05] MEDS: FLUoxetine 20 MG CAP PO SCH (13:45)
[2017-09-05] MEDS: AMIODARONE HCL 200 MG TAB PO SCH (13:45)
[2017-09-05] MEDS: ASPIRIN 81 MG CHEWABLE TAB PO SCH (13:45)
[2017-09-05] MEDS: MEMANTINE HCL 5 MG TAB PO SCH (13:45)
[2017-09-05] MEDS: MESALAMINE 400 MG CAP.DR PO SCH ×2 (13:46→21:49)
--- NOTE | 2017-09-05 14:53 | HOSPPROG ---
Hospitalist Progress Note Assessment/Plan: DIAGNOSES: -acute allergic type reaction uncertain etiology with angioedema of trunk and limbs but without itching or hives -this is potentially consistent with the lisinopril angioedema -normal INR and a patient who is reportedly taking Coumadin because of heart disease -it is unclear exactly what his compliance with the medication is. However based on my extensive discussions with Dr. Levy today the patient really does not have any ongoing indication for anticoagulation at this time so we will stop at -dilated cardiomyopathy with last ejection fraction in the 40s but with history of VFib -history of V fib arrest with AICD in place and he has been on amiodarone -valvular heart disease with a bioprosthetic aortic valve in place; he is far enough out now that he has no indication for anticoagulation at this point I reviewed this patient's care with Dr. Jasper Levy. The patient lives in [place] but has been visiting physicians at [facility] as his primary rn or lpn. Notably however he has switched cardiologists more than once, and has not been compliant with follow-up visits and not compliant with INR monitoring of his Coumadin and comes in now with an INR of 1.1. Will need to find ways for him to be cared for in fashion that makes it easier for him to comply with recommendations and follow-up. At this point will be recommended that we try and stop his lisinopril and I will replace that with an angiotensin receptor priya with knowledge there is a possibility that his reaction last night was due lisinopril, and there is a small chance that he could have some reaction with an ARB. There is however no way to know for sure what caused his reaction last night and he has been on the lisinopril for 20 years. He clearly needs something to help protect his ventricular function, and he is not likely to be compliant with multi dose hydralazine daily. At this point he is clearly not compliant with his Coumadin or its monitoring, and he does not really have a indication for anticoagulation so will recommend stopping that PLANS: -continue on cherry pitter -continue observe for complete resolution in absence of recurrence of his allergic reaction or angioedema -stop lisinopril replace it with an ARB -stop anticoagulation at this time -we will be reviewing echocardiogram at this time and reassessing his LV function. Question of whether with an AICD in place he still needs amiodarone. The amiodarone was given in the postoperative setting when he has valve surgery done. There is not any other history of atrial fibrillation. SUBJECTIVE: His swelling is almost entirely resolved at this time. At no point was there any oral or laryngeal swelling or any wheezing or shortness of breath. There has been no chest pain and no fever and no visible rash, really and angioedema type swelling OBJECTIVE Vitals reviewed: Stable without fever Patient Registration Supervisor, my review: Sinus Exam: alert oriented skin warm dry color ok, still some mild edema in his right hand and wrist area otherwise his angioedema is resolved at this time resps not labored lungs clear BSs heart regular abd soft nondistended nontender, bowel sounds present limbs warm, no edema iv site ok 2 visits with this patient by myself today in addition to multidisciplinary rounds Objective: Vital Signs Temp Pulse Resp BP Pulse Ox 36.7 C 93 18 139/79 H 94 09/05/17 12:04 09/05/17 12:04 09/05/17 12:04 09/05/17 12:04 09/05/17 12:04 Laboratory Results 09/05/17 04:50 09/05/17 04:50 09/04/17 09/05/17 09/06/17 06:59 06:59 06:59 Intake Total 350 300 Balance 350 300 PT 14.7 SEC (12.0-15.0) 09/04/17 18:00 INR 1.13 (0.83-1.16) 09/04/17 18:00 - Time Spent With Patient Time Spent with Patient: greater than 35 minutes Time Spent with Patient: Greater than 35 minutes spent on this patients care, greater than 50% of time spent counseling, educating, and coordinating care regarding the above mentioned plan. ICD10 Worksheet Patient Problems: Problems Problem Status Onset Allergic reaction Acute Chest wall pain Acute Constipation Acute Urticaria Acute Acute blood loss anemia Acute Prosthetic aortic valve stenosis Acute S/P aortic valve replacement with bioprosthetic valve Acute ~11/09/16 CAD in upper [place] artery Chronic Congestive heart failure (CHF) Chronic Dyslipidemia (high LDL; low HDL) Chronic HTN (hypertension) Chronic ICD (implantable cardioverter-defibrillator), dual, in situ Chronic Nonsustained ventricular tachycardia Chronic
--- NOTE | 2017-09-05 15:22 | ASMTCASEMG ---
Living Arrangements What is your living Answers: Alone arrangement? Who do you live with? Type Of Residence What kind of residence do Answers: House you live in? Discharge Plan Comments Coordination Status Comments Notes: Discussed pts case in morning rounds. Pt is a 57 y/o man admitted for chest pain and a rash. Pt will most likely d/c independent when medically stable. Pt lives in [place], [place]. No therapies ordered at this time. CM available for changes. Plan: Independent Date Signed: 09/05/2017 03:22 PM Electronically Signed By:SERA Capps
--- NOTE | 2017-09-05 15:33 | ECHO ---
[email or web address] [address] [address] Main: [phone] Fax: Transthoracic Echocardiogram Name: SHANTELL DACOSTA MR#: [id number] Study Date: 09/05/2017 Study Time: 01:58 PM Date of : 1960 Age: 57 year(s) Height: 177.8 cm (70 in.) Weight: 100.24 kg (221 lb.) BSA: 2.18 m2 Gender: Male Examination: Echo Indication: s/p mitral valve repair, Aortic Valve Regurgitation, CABG, ICD Image Quality: Adequate Contrast: Requested by: Rd Galaviz BP: 128 mmHg/71 mmHg Heart Rate: Rhythm: Tachycardia Indication: s/p mitral valve repair, Aortic Valve Regurgitation, CABG, ICD Procedure Staff Television News Photographer: Carmen Kaplan [facility] Reading Physician: Jasper Levy Requesting Provider: Conclusions: Normal size left ventricle. Mild to moderate LVH. EF is 66 %. The left atrium is mildly dilated. An annuloplasty ring is noted in the mitral valve position. Mean gradient across the valve 14mmHg. Trivial mitral regurgitation. The aortic valve is a bioprosthesis. Right ventricular systolic pressure measures 34mmHg. Ascending aorta is difficult to assess.. Consider CT scan to evalaute ascending aorta. Measurements: Chambers Valvular Assessment AV/MV Valvular Assessment TV/PV Normal Normal Normal Name Value Range Name Value Range Name Value Range Ao Marnie (MM): 4.1 cm (2.2 cm-3.7 AV Vmax: 2.63 m/s (1 m/s-1.7 TR Vmax: 2.70 mm/s ( - ) cm) m/s) TR PGmax: 29 mmHg ( - ) IVSd (2D): 1.3 cm (0.6 cm-1.1 AV maxP mmHg ( - ) syst. PAP: 34 mmHg ( - ) cm) AV meanP mmHg ( - ) PV Vmax: 1.44 m/s (0.6 m/s-0.9 LVDd (2D): 4.0 cm (4.2 cm-5.9 MV meanP mmHg ( - ) m/s) cm) PV PGmax: 8 mmHg ( - ) LVDs (2D): 2.4 cm (2.1 cm-4 cm) LVPWd (2D): 1.2 cm (0.6 cm-1 cm) LVEF (BP): 66 % (>=55 %) RVDd(2D): 3.4 cm (1.9 cm-3.8 cmmm) Continued Measurements: Patient: SHANTELL DACOSTA Study Date: 09/05/2017 Page 1 of 2 01:58 PM Chambers Valvular Assessment AV/MV Valvular Assessment TV/PV Name Value Name Value Name Value LADs Lon.7 cm MV VTI: 57.90 cm CVP (est.): 5 mmHg LA Area: 22.1 cm2 LA Volume: 68 ml LA Volume Index: 31.2 ml/m2 RA Area: 14.7 cm2 Additional Vessels Name Value Ao Ascendin.1 cm Findings: Left Ventricle: Normal size left ventricle. Mild to moderate LVH. Normal global systolic LV function. EF is 66 %. No regional wall motion abnormality. Unable to assess diastolic dysfunction. Right Ventricle: Normal size right ventricle. Normal RV function. There is an ICD lead noted in the right ventricle. Left Atrium: The left atrium is mildly dilated. Right Atrium: The right atrium is normal in size. Mitral Valve: An annuloplasty ring is noted in the mitral valve position. Mean gradient across the valve 14mmHg. Trivial mitral regurgitation. Aortic Valve: The aortic valve is a bioprosthesis. No prosthesis stenosis. No prosthesis regurgitation. Tricuspid Valve: The tricuspid valve is normal in appearance and function. Mild tricuspid regurgitation is present. Borderline elevated pumonary artery pressure. Right ventricular systolic pressure measures 34mmHg. Pulmonic Valve: The pulmonic valve is normal in appearance and function. Trivial pulmonic valve regurgitation. Aorta: Ascending aorta is difficult to assess.. Mildly dilated aortic root measuring 4.1 cm. IVC: The IVC is normal sized. There is greater nestor 50% respiratory excursion. Pericardium: No pericardial effusion. (No Signature Object) Patient: SHANTELL DACOSTA Study Date: 09/05/2017 Page 2 of 2 01:58 PM D:_[id number]
[2017-09-05] MEDS: POTASSIUM CL 20 MEQ TAB PO SCH (16:46)
[2017-09-05] MEDS: FUROSEMIDE 40 MG TAB PO SCH (16:46)
--- NOTE | 2017-09-05 16:56 | SOAPPROG ---
LEAH Progress Note Assessment/Plan: 1. Arteriosclerosis of autologous vein coronary artery bypass graft - Patient underwent CABG with JACKMAN to LAD and saphenous vein graft to diagonal artery at the time of his AVR in 2014. Continue secondary prevention with metoprolol, lisinopril, and Lipitor. 2. Bicuspid aortic valve - Patient presented with a bicuspid aortic valve with severe aortic insufficiency. He was treated with bioprosthetic AVR in 2014. He developed severe stenosis of the bioprosthetic valve in underwent redo AVR in November of 2016. Echocardiogram demonstrates a normally functioning bioprosthetic valve. --> DC coumadin and amiodarone now 3. HTN (hypertension) - Well controlled. Continue current therapy. 4. Hyperlipemia --> FLP and LFTs now. 5. Palpitations - Patient has a long history of PVCs and is s/p ablation. ICD interrogation demonstrates no significant arrhythmias. 6. Limb pain - Patient reports bluish discoloration in his hands and feet since surgery. He is concerned this may represent poor circulation. He is scheduled for an ROMEO to further evaluate his condition in our office next week 7. Allergic reaction - Pt admitted with an allergic reaction. Please see Dr. Santos note. Will DC amiodarone and coumadin as these are no longer needed. Agree with changing orin to ARB. Subjective: No chest pain No orthopnea or PND + swelling of hands and feet. No obvious precipitating or relieving factors. Objective: Vital Signs Temp Pulse Resp BP Pulse Ox 36.7 C 93 18 139/79 H 94 09/05/17 12:04 09/05/17 12:04 09/05/17 12:04 09/05/17 12:04 09/05/17 12:04 Laboratory Results 09/05/17 04:50 09/05/17 04:50 09/04/17 09/05/17 09/06/17 05:59 05:59 05:59 Intake Total 350 300 Balance 350 300 PT 14.7 SEC (12.0-15.0) 09/04/17 18:00 INR 1.13 (0.83-1.16) 09/04/17 18:00 Physical Exam - Physical Exam General Appearance: alert, no apparent distress Respiratory: lungs clear, No wheezing Cardiac/Chest: regular rate, rhythm, systolic murmur Abdomen: non-tender, soft Skin: other (erythema and induration) Neuro/Psych: alert, oriented x 3 ICD10 Worksheet Patient Problems: Problems Problem Status Onset Allergic reaction Acute Chest wall pain Acute Constipation Acute Urticaria Acute Acute blood loss anemia Acute Prosthetic aortic valve stenosis Acute S/P aortic valve replacement with bioprosthetic valve Acute ~11/09/16 CAD in [place] artery Chronic Congestive heart failure (CHF) Chronic Dyslipidemia (high LDL; low HDL) Chronic HTN (hypertension) Chronic ICD (implantable cardioverter-defibrillator), dual, in situ Chronic Nonsustained ventricular tachycardia Chronic
[2017-09-05] MEDS: metFORMIN HCL 500 MG TAB PO SCH (17:02)
[2017-09-05] MEDS: LOSARTAN POTASSIUM 25 MG TAB PO SCH (19:16)
[2017-09-05] MEDS ORDERED: ZOLPIDEM TARTRATE 5 MG TAB PO SCH (21:00)
[2017-09-05] MEDS: METOPROLOL TARTRATE 25 MG TAB PO SCH (21:49)
[2017-09-05 23:57] VITALS: RESP 16
[2017-09-06] MEDS: methylPREDNISolone SOD SUCC 125 MG/2 ML VIAL IVP SCH ×2 (06:12→12:03)
[2017-09-06] MEDS: diphenhydrAMINE 25 MG CAP PO SCH ×2 (06:12→12:02)
[2017-09-06 07:14] VITALS: BP 125/73; PULSE 73; TEMP 97.3; O2SAT 94
--- NOTE | 2017-09-06 08:31 | PDMN ---
Medical Necessity Medical necessity: Patient meets inpatient criteria/was transitioned to inpatient status per physician note and [facility] guidelines: LOS will be > 2 midnights for ongoing IV steroids for acute allergic reaction/angioedema and close monitoring of angioedema/other poss allergic-type reaction after change from lisinopril to losartan.)
[2017-09-06] MEDS: ENOXAPARIN 40 MG/0.4 ML SYR SC SCH (08:37)
[2017-09-06] MEDS: FAMOTIDINE 20 MG TAB PO SCH (08:38)
[2017-09-06] MEDS: FUROSEMIDE 40 MG TAB PO SCH (08:39)
--- NOTE | 2017-09-06 08:39 | PDDCSUM ---
Discharge Summary Discharge Summary: DISCHARGE DIAGNOSES: -acute angioedema, 1st ever episode, question possibly due to lisinopril -chronic ischemic cardiomyopathy and heart failure stable at baseline; valvular heart disease with mitral valve replacement bioprosthetic -noncompliance with Coumadin and Coumadin monitoring -prior history of ventricular fibrillation, AICD in place which has not fired CONSULTANTS: Dr. Jasper Levy PROCEDURES: Echocardiogram: EF 65%, no new wall motion abnormalities, mitral valve annuloplasty ring in good position, mild increased pulmonary pressures at 34 HOSPITAL COURSE SUMMARY: This patient was flying on an airplane on the night of admission when he suddenly had abrupt onset of itching followed by a very dramatic swelling of his arms hands wrists chest abdominal wall with minimal visible rash. This involved a significant sensation of burning type pain in the skin and soft tissues. As this plane landed here he was brought to the emergency room at this hospital. He was treated with steroid and Benadryl. There had been no symptoms of oral pharyngeal or airway swelling or wheezing and these were not seen at his evaluation here in the ER. The patient's symptoms resolved completely during his hospital stay. He had not eaten anything for hours before this reaction and had not eaten any unusual foods for him. He has no new medications. He does take lisinopril for the last 20 years for hypertension and heart disease. He had never had an episode anything like this in the past. It was felt that there was a possibility that lisinopril could have caused this angioedema like episode. Therefore is elected to stop his lisinopril at this time. We did give him a dose of losartan to see if he tolerated that and he did tolerated. Is desire to keep him on afterload reduction due to his multiple heart issues. He will be discharged on a new prescription for losartan and follow up in 1 week [address] clinic with Dr. Levy. Due to the patient's history of of valve replacement and severe cardiomyopathy, he had been placed in the past on Coumadin and amiodarone. 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 He comes in now with an INR of 1.1 As reviewed his chart there is no history of atrial fibrillation. He has a bioprosthetic valve and no troubles with that. Echocardiogram here looked good as far as his valve and his ejection fraction is actually notably increased from his past. Therefore was not felt that there was any current indication for amiodarone or Coumadin and these are both stopped at this time. Again he will follow up next week with Dr. Levy to review his progress off of those medicines. PENDING TEST RESULTS: None MEDICATION CHANGES: Lisinopril is discontinued because of possible angioedema reaction causing that Losartan is started and trialed here and he tolerated his 1st dose well Amiodarone is no longer indicated and is discontinued at this time Coumadin is no longer indicated considering his bioprosthetic valve and anticoagulation is discontinued at this time FOLLOW-UP PLAN: With Dr. Levy in Cardiology Clinic in 1 week Greater than 35 minutes bedside and care coordination time today
[2017-09-06] MEDS: POTASSIUM CL 20 MEQ TAB PO SCH (08:41)
[2017-09-06] MEDS: ASPIRIN 81 MG CHEWABLE TAB PO SCH (08:42)
[2017-09-06] MEDS: METOPROLOL TARTRATE 25 MG TAB PO SCH (08:42)
[2017-09-06] MEDS: metFORMIN HCL 500 MG TAB PO SCH (08:43)
[2017-09-06] MEDS: LOSARTAN POTASSIUM 25 MG TAB PO SCH (08:43)
[2017-09-06] MEDS: MEMANTINE HCL 5 MG TAB PO SCH (08:43)
[2017-09-06] MEDS: ATORVASTATIN CALCIUM 20 MG TAB PO SCH (08:43)
[2017-09-06] MEDS: MESALAMINE 400 MG CAP.DR PO SCH (08:43)
[2017-09-06] MEDS: FLUoxetine 20 MG CAP PO SCH (08:43)
[2017-09-06] MEDS: AMIODARONE HCL 200 MG TAB PO SCH (08:54)
[2017-09-06] MEDS ORDERED: ASCORBIC ACID 500 MG TAB PO SCH (09:00)
--- NOTE | 2017-09-06 12:39 | ASDISCHSUM ---
Discharge Information Plan Status:Home with No Needs Medically Cleared to Leave:09/05/2017 Discharge Date:09/06/2017 12:15 PM CM D/C Disposition: ADT D/C Disposition:Home, Routine, Self-Care Projected Discharge Date:09/06/2017 12:00 AM Transportation at D/C: Discharge Delay Reason: Follow-Up Date:09/06/2017 12:00 AM Discharge Slot: Final Diagnosis: Placement Information Patient Contact Information Contact Name:DELVIS Relationship:Sania Address: Work Phone: City:[place] Alternate Phone: State/Zip Code:[place] Email: Financial Information Financial Class:Medicare Advantage Plans Primary Plan Desc:[employer] MEDICARE SO Primary Plan Number:[id number] Secondary Plan Desc: Secondary Plan Number: Assessment Information [facility] Initial CM Assessment Living Arrangements What is your living Answers: Alone arrangement? Who do you live with? Type Of Residence What kind of residence do Answers: House you live in? Discharge Plan Comments Coordination Status Comments Notes: Discussed pts case in morning rounds. Pt is a 57 y/o man admitted for chest pain and a rash. Pt will most likely d/c independent when medically stable. Pt lives in [place], [place]. No therapies ordered at this time. CM available for changes. Plan: Independent Date Signed: 09/05/2017 03:22 PM Electronically Signed By:SERA Capps Intervention Information Intervention Type:*NELSON-Signed Date of Service:09/05/2017 11:32 AM Patient Type:Observation Staff Member:Rosey La Hours: Discipline: Severity: Comment:
== END 2017-09-06 12:15 | disposition home or self-care (01) | DRG 916 ==
LOC: F2W 22:00 → OBSVTOIN 09-05 18:32
PROVIDERS: ADMIT Family Medicine; ATTEND Family Medicine
DX: T78.3XXA Angioneurotic edema, initial encounter (principal); I50.30 Unspecified diastolic (congestive) heart failure; T46.4X5A Adverse effect of angiotensin-converting-enzyme inhibitors, initial encounter; I25.5 Ischemic cardiomyopathy; T45.516A Underdosing of anticoagulants, initial encounter; E11.9 Type 2 diabetes mellitus without complications; K59.09 Other constipation; Z23 Encounter for immunization; Z95.810 Presence of automatic (implantable) cardiac defibrillator; Z95.1 Presence of aortocoronary bypass graft; Z95.3 Presence of xenogenic heart valve
CPT/HCPCS: 96374; G0008; G0378; J1200; J1650; J2780; J2930

== ENCOUNTER 2018-05-05 09:42 | Inpatient (IN) | payer OTHER ==
[2018-05-05] MEDS ORDERED: CYCLOBENZAPRINE 10 MG TAB PO PRN (11:16)
--- NOTE | 2018-05-05 11:55 | PDCARPN ---
Cardiology Progress Note Chief Complaint: Atrial Flutter/Fib ADMIT for Sotalol Load Assessment/Plan: Assessment: ADMIT FOR SOTALOL LOAD. 1. Atrial Flutter/ Atrial Fibrillation---Was seen at [facility] 03/20/18 with Paroxysmal Atrial Fibrillation. Soon after that visit he was admitted to [facility] for inappropriate ICD discharge for Atrial Flutter w/ RVR. ICD was readjusted, and he has not had further ICD discharges. He was seen in clinic by Dr Levy 04/28/18. He recommended loading him on Sotalol. He arrives this morning for Sotalol Load 80 mg BID, for Atrial Flutter management and Ventricular arrhythmia Management. He is anticoagulated on Eliquis. 2. CAD w/ CABG X2--JACKMAN to LAD, Saph vein graph to Diagonal at time of AVR 2014. Angiogram 2016 showed patent graphs. He had a nuclear stress test in November 2017 that showed no indication of cardiac ischemia or infarction. 3. Bicuspid Aortic Valve--In 2014 Bioprosthetic Valve--> AVR 2014. 2017, Severe stenosis of Bioprosthetic valve-- REDO-AVR. Sep 2017 Normal functioning bioprosthetic AVR-- By echo Sep 2017. 4. S/P MVR---STABLE by recent echo. 5. HYPERTENSION--- well managed on current medications. 6. HYPERLIPIDEMIA--Managed on Atorvastatin. His Brother recently , and he is mourning him. Plan: Once EKG done-- If QTc permits, will initiate Sotalol 80 mg. 05/05/18 11:26 Subjective: I am ready to get the new medication started. Reviewed/Discussed With: multidisciplinary team Time Spent with Patient: greater than 25 minutes Time Spent with Patient: Greater than 25 minutes spent on this patients care, greater than 50% of time spent counseling, educating, and coordinating care regarding the above mentioned plan. Objective: Intake/Output (24 Hrs) 05/04/18 05/05/18 05/06/18 05:59 05:59 05:59 Other: Weight 100.244 kg - Physical Exam Constitutional: no apparent distress Cardiovascular: no rubs, no gallops, systolic murmur, irregularly irregular Peripheral Pulses: 2+: carotid (R), carotid (L), dorsalis-pedis (R), dorsalis- pedis (L) Respiratory: clear to auscultate bilat, no crackles, no wheezes, No reduced air movement Gastrointestinal: no tenderness, No ascites, No guarding Skin: no edema Neurologic: AAOx3 Psychiatric: cooperative, interactive ICD10 Worksheet Patient Problems: Problems Problem Status Onset Allergic reaction Acute Chest wall pain Acute Constipation Acute Urticaria Acute ICD (implantable cardioverter-defibrillator), dual, in situ Chronic Acute blood loss anemia Acute S/P aortic valve replacement with bioprosthetic valve Acute ~11/09/16 Prosthetic aortic valve stenosis Acute CAD in [place] artery Chronic Congestive heart failure (CHF) Chronic Dyslipidemia (high LDL; low HDL) Chronic HTN (hypertension) Chronic Nonsustained ventricular tachycardia Chronic
--- NOTE | 2018-05-05 12:31 | PDMN ---
Medical Necessity Medical necessity: [facility] M505: afib: A-1 days: INPT for: initiation of sotalol in pt with sig cardiac hx. CAD s/p CABG X2,bicuspid aortic valve, bioprosthetic valve, AVR, ..
[2018-05-05 12:33] LABS: PLATELET COUNT 163 10^3/uL (150-400)
[2018-05-05] MEDS: SOTALOL HCL 80 MG TAB PO SCH ×2 (12:42→21:58)
[2018-05-05 12:43] LABS: INR 1.51 (0.83-1.16); PROTIME(PATIENT) 18.4 SEC (12.0-15.0)
[2018-05-05] MEDS: metFORMIN HCL 500 MG TAB PO SCH (21:18)
[2018-05-05] MEDS: ZOLPIDEM TARTRATE 5 MG TAB PO SCH (21:19)
[2018-05-05] MEDS: ATORVASTATIN CALCIUM 20 MG TAB PO SCH (21:19)
[2018-05-06 04:27] LABS: INR 1.38 (0.83-1.16); PROTIME(PATIENT) 17.1 SEC (12.0-15.0)
[2018-05-06] MEDS: FLUoxetine 20 MG CAP PO SCH (08:00)
[2018-05-06] MEDS: FUROSEMIDE 40 MG TAB PO SCH (08:00)
[2018-05-06] MEDS: MEMANTINE HCL 5 MG TAB PO SCH (08:00)
[2018-05-06] MEDS: POTASSIUM CL 20 MEQ TAB PO SCH (08:00)
[2018-05-06] MEDS: LOSARTAN POTASSIUM 25 MG TAB PO SCH (08:00)
[2018-05-06] MEDS: ASPIRIN 81 MG CHEWABLE TAB PO SCH (08:01)
[2018-05-06] MEDS: SOTALOL HCL 80 MG TAB PO SCH ×3 (10:12→21:20)
[2018-05-06] MEDS: APIXABAN 5 MG TAB PO SCH ×2 (13:18→21:21)
--- NOTE | 2018-05-06 13:50 | ASMTCMCOM ---
CM Note CM Note Notes: 05/06/2018 Case Management Note Pt admitted for sotolol loading. Recent independent d/c from [facility] on 09/06/2017 . There are no therapy evals ordered at this time. Pt lives in [place] but has family here in [place] for support. Pt is independent in ADL's prior to admission. Case Management d/c poc: anticipating independent with follow up as directed. Case Management available if needs change. Date Signed: 05/06/2018 01:48 PM Electronically Signed By:Betty Fiore RN
--- NOTE | 2018-05-06 16:52 | PDCARPN ---
Cardiology Progress Note Assessment/Plan: Assessment: ADMIT FOR SOTALOL LOAD. 1. Atrial Flutter/ Atrial Fibrillation---Was seen at [facility] 03/20/18 with Paroxysmal Atrial Fibrillation. Soon after that visit he was admitted to [facility] for inappropriate ICD discharge for Atrial Flutter w/ RVR. ICD was readjusted, and he has not had further ICD discharges. He was seen in clinic by Dr Levy 04/28/18. He recommended loading him on Sotalol. He arrives this morning for Sotalol Load 80 mg BID, for Atrial Flutter management and Ventricular arrhythmia Management. He is anticoagulated on Eliquis. 2. CAD w/ CABG X2--JACKMAN to LAD, Saph vein graph to Diagonal at time of AVR 2014. Angiogram 2016 showed patent graphs. He had a nuclear stress test in November 2017 that showed no indication of cardiac ischemia or infarction. 3. Bicuspid Aortic Valve--In 2014 Bioprosthetic Valve--> AVR 2014. 2017, Severe stenosis of Bioprosthetic valve-- REDO-AVR. Sep 2017 Normal functioning bioprosthetic AVR-- By echo Sep 2017. 4. S/P MVR---STABLE by recent echo. 5. HYPERTENSION--- well managed on current medications. 6. HYPERLIPIDEMIA--Managed on Atorvastatin. His Brother recently , and he is mourning him. Plan: Once EKG done-- If QTc permits, will initiate Sotalol 80 mg. 05/05/18 11:26 05/06/18 16:48 Roland is doing well with Sotalol loading. His rhythm is paced sinus. He feels much better today than he has in a "long time". His EKG shows QTC 470. He will get 3rd dose of Sotalol this evening. EKG's have been reviewed with Dr Levy. He has been up walking in halls. Plan for discharge tomorrow late morning. Subjective: I feel so much better today. Reviewed/Discussed With: multidisciplinary team Time Spent with Patient: greater than 25 minutes Time Spent with Patient: Greater than 25 minutes spent on this patients care, greater than 50% of time spent counseling, educating, and coordinating care regarding the above mentioned plan. Objective: Vital Signs (8 Hrs) Temp Pulse Resp BP Pulse Ox 05/06/18 15:38 36.7 C 74 16 115/73 95 05/06/18 11:58 37.1 C 93 16 107/75 93 Intake/Output (24 Hrs) 05/05/18 05/06/18 05/07/18 05:59 05:59 05:59 Intake Total 1540 Balance 1540 Intake: Oral (ml) 1540 Other: Weight 100.244 kg Number of Voids Toilet 2 Number of Stools Toilet 1 Result Diagrams: 05/05/18 12:20 05/06/18 03:23 - Physical Exam Constitutional: no apparent distress Cardiovascular: regular rate and rhythm, no murmurs, no rubs, no gallops Respiratory: clear to auscultate bilat, no crackles, no wheezes Skin: warm, no edema Neurologic: AAOx3 Psychiatric: cooperative, interactive ICD10 Worksheet Patient Problems: Problems Problem Status Onset Acute blood loss anemia Acute Allergic reaction Acute Chest wall pain Acute Constipation Acute Prosthetic aortic valve stenosis Acute S/P aortic valve replacement with bioprosthetic valve Acute ~11/09/16 Urticaria Acute CAD in [place] artery Chronic Congestive heart failure (CHF) Chronic Dyslipidemia (high LDL; low HDL) Chronic HTN (hypertension) Chronic ICD (implantable cardioverter-defibrillator), dual, in situ Chronic Nonsustained ventricular tachycardia Chronic
--- NOTE | 2018-05-06 16:59 | CPEKG ---
Test Reason : OPEN Blood Pressure : / mmHG Vent. Rate : 073 BPM Atrial Rate : 073 BPM P-R Int : 185 ms QRS Dur : 108 ms QT Int : 420 ms P-R-T Axes : 056 -50 267 degrees QTc Int : 463 ms Sinus rhythm left atrial abnormality Left anterior fascicular block LVH with secondary repolarization abnormality Compared with 05/06/2018 at 12:17 a.m. atrial pacing no longer present Confirmed by Kristin Young ([id number]) on 05/06/2018 4:59:10 PM Referred By: Confirmed By:Kristin Young
--- NOTE | 2018-05-06 17:00 | CPEKG ---
Test Reason : OPEN Blood Pressure : / mmHG Vent. Rate : 077 BPM Atrial Rate : 077 BPM P-R Int : 120 ms QRS Dur : 108 ms QT Int : 417 ms P-R-T Axes : -24 -58 -86 degrees QTc Int : 472 ms Atrial-paced complexes Left anterior fascicular block LVH with secondary repolarization abnormality Compared with 05/06/2018 at 10:04 a.m. atrial pacing noted Confirmed by Kristin Young ([id number]) on 05/06/2018 5:00:28 PM Referred By: Confirmed By:Kristin Young
[2018-05-06] MEDS: ATORVASTATIN CALCIUM 20 MG TAB PO SCH (21:20)
[2018-05-06] MEDS: ZOLPIDEM TARTRATE 5 MG TAB PO SCH (21:20)
[2018-05-06] MEDS: metFORMIN HCL 500 MG TAB PO SCH (21:20)
[2018-05-07 09:02] VITALS: BP 123/86
[2018-05-07] MEDS: FUROSEMIDE 40 MG TAB PO SCH (09:08)
[2018-05-07] MEDS: ASPIRIN 81 MG CHEWABLE TAB PO SCH (09:08)
[2018-05-07] MEDS: MEMANTINE HCL 5 MG TAB PO SCH (09:08)
[2018-05-07] MEDS: SOTALOL HCL 80 MG TAB PO SCH (09:08)
[2018-05-07] MEDS: FLUoxetine 20 MG CAP PO SCH (09:08)
[2018-05-07] MEDS: POTASSIUM CL 20 MEQ TAB PO SCH (09:08)
[2018-05-07] MEDS: APIXABAN 5 MG TAB PO SCH (09:08)
[2018-05-07] MEDS: LOSARTAN POTASSIUM 25 MG TAB PO SCH (09:09)
--- NOTE | 2018-05-07 11:58 | ASMTCMCOM ---
CM Note CM Note Notes: Pts case discussed in tx rounds. Pt is scheduled to have a CABG tomorrow. Needs are TBD at this time. CM to follow Dr. Abdi/team for guidance regarding dispo planning. CM to follow. Date Signed: 05/07/2018 11:57 AM Electronically Signed By:SERA Capps
--- NOTE | 2018-05-07 15:17 | GDS ---
ADMISSION DIAGNOSES: 1. Atrial flutter. 2. Ventricular tachycardia with implantable cardioverter defibrillator in place. 3. Recent implantable cardioverter defibrillator firing storm. 4. Planned sotalol loading for management of atrial flutter. DISCHARGE DIAGNOSES: 1. Status post successful sotalol load. 2. Atrial flutter. 3. Ventricular tachycardia with implantable cardioverter defibrillator in place. HOSPITAL COURSE: This gentleman is a well known patient of Dr. Jasper Levy. He lives in [facility]. He had an unfortunate experience of his ICD firing inappropriately 5 times in succession. [place] bar[place]ona went to the emergency room in [place], [place] where his device was interrogated finding atrial flut ter that was likely the cause of the inappropriate discharges of the ICD. Dr. Levy saw him in clin ic after this episode with the recommendation to have him enter the hospital for sotalol load to in a n effort to manage his atrial flutter. He was in agreement with this plan. He had no problems with the sotalol. He had no dizziness, lightheadedness, or blood pressure changes. He has tolerated the medication quite well. He reports that he now feels better than he has felt in many years. At this time, he currently is stable for discharge on sotalol 80 mg twice daily. ALLERGIES: He has no known allergies. DISCHARGE MEDICATIONS: He will go home on Flexeril 10 mg at bedtime as needed, Lipitor 20 mg at bedt kerri, aspirin 81 mg daily, Prozac 20 mg daily, Namenda 5 mg daily, vitamin C 500 mg daily, Ambien 10 m g at bedtime, Glucophage 500 mg at bedtime, Klor-Con 20 mEq daily, Lasix 40 mg daily, Cozaar 25 mg da nancy, Lopressor discontinued, Eliquis 5 mg twice daily, sotalol 80 mg twice daily. PHYSICAL EXAMINATION: VITAL SIGNS: On day of discharge, blood pressure 123/86, heart rate 80, oxyge n saturation 96% on room air, temperature 36.4. Telemetry shows a paced rhythm. EKG shows QTc this morning of [address] Jasper Levy who reviewed the EKGs prior to each dosing of the sotalol . HEART: Heart rate is regular. No murmurs, rubs, gallops. LUNGS: Sounds are clear to auscultati on. No wheezes, rales, or rhonchi. EXTREMITIES: No peripheral edema noted. DISCHARGE PLAN: 1. He will be discharged home on sotalol 80 mg twice daily. His metoprolol was stopped. 2. He is to have an EKG in 1 week at [facility] office scheduled for May 14 at 10:45 i n the morning. 3. Appointment with Dr. Hilario Burgess in 3 weeks to further evaluate for possible EP study or other lis atment options. This appointment is scheduled for 05/30/2018, at 9:15 a.m. at the [facility] office. 4. Follow up with Dr. Levy in 2 months, scheduled for July 11 at 2 p.m. in the [facility] office . 5. He is asked to call the office should he have dizziness, feel faint, or other concerning symptoms . 6. At this time, he currently is stable for discharge. /[id number]/MODL
--- NOTE | 2018-05-07 16:40 | CPEKG ---
Test Reason : OPEN Blood Pressure : / mmHG Vent. Rate : 071 BPM Atrial Rate : 071 BPM P-R Int : 182 ms QRS Dur : 115 ms QT Int : 458 ms P-R-T Axes : 067 -50 -75 degrees QTc Int : 498 ms Atrial-paced rhythm LVH with IVCD, LAD and secondary repol abnrm Borderline prolonged QT interval Confirmed by Kristin Young ([id number]) on 05/07/2018 4:39:44 PM Referred By: Confirmed By:Kristin Young
--- NOTE | 2018-05-07 16:45 | CPEKG ---
Test Reason : OPEN Blood Pressure : / mmHG Vent. Rate : 076 BPM Atrial Rate : 076 BPM P-R Int : 150 ms QRS Dur : 110 ms QT Int : 424 ms P-R-T Axes : -53 -54 266 degrees QTc Int : 477 ms Atrial-paced rhythm Left anterior fascicular block Prolonged QT Repol abnrm suggests ischemia, anterolateral Confirmed by Kristin Young ([id number]) on 05/07/2018 4:44:57 PM Referred By: Confirmed By:Kristin Young
== END 2018-05-07 12:58 | disposition home or self-care (01) | DRG 310 ==
LOC: F2W 09:52
PROVIDERS: ADMIT Internal Medicine Cardiovascular Disease; ATTEND Internal Medicine Cardiovascular Disease
DX: I48.92 Unspecified atrial flutter (principal); I47.2 Ventricular tachycardia; I25.10 Atherosclerotic heart disease of native coronary artery without angina pectoris; I10 Essential (primary) hypertension; E78.5 Hyperlipidemia, unspecified; I05.9 Rheumatic mitral valve disease, unspecified; Z23 Encounter for immunization; Z79.01 Long term (current) use of anticoagulants; Z95.810 Presence of automatic (implantable) cardiac defibrillator; Z95.1 Presence of aortocoronary bypass graft; Z95.3 Presence of xenogenic heart valve
CPT/HCPCS: G0008